=== PATIENT | female | born 1955 | race Caucasian/White ===

== ENCOUNTER 2017-09-22 20:16 | Inpatient (IN) | payer MEDICAID ==
[~2017-09-22] VITALS: Ht 157.5 cm; Wt 86.4 kg
[~2017-09-22 20:16] MED LIST: ACYC200C PO; DIT5T PO; LEVO100T PO; METF500T PO; METO1TAB39; PROB500T10 PO
[2017-09-22] MEDS ORDERED: methylPREDNISolone sod succ 125mg/2ml vial IV ONE (20:35)
[2017-09-22] MEDS ORDERED: ipratropium/albuterol 3ml nebule NEB ONE (20:35)
[2017-09-22] MEDS ORDERED: levoFLOXACIN-Levaquin 500mg/D5 100 ML IV ONE (20:35)
[2017-09-22] MEDS ORDERED: LORazepam 2 mg/ml vial IV ONE (20:35)
[2017-09-22 20:42] LABS: BASOPHILS % (AUTO) 0.2 % (0-1); EOSINOPHILS # (AUTO) 0.4 X10'3 (0-0.9); EOSINOPHILS % (AUTO) 3.4 % (0-6); HEMATOCRIT 39.7 % (35.0-45.0); HEMOGLOBIN 13.1 g/dl (12.0-16.0); LYMPHOCYTES # (AUTO) 2.1 X10'3 (1.1-4.8); LYMPHOCYTES % (AUTO) 19.2 % (21-51); MEAN CORPUSCULAR HEMOGLOBIN 29.1 PG (27.0-31.0); MEAN CORPUSCULAR HGB CONC 32.9 % (33.0-36.5); MEAN CORPUSCULAR VOLUME 88.4 FL (78-98); MEAN PLATELET VOLUME 8.4 FL (7.4-10.4); MONOCYTES # (AUTO) 0.8 X10'3 (0-0.9); MONOCYTES % (AUTO) 6.9 % (2-12); NEUTROPHILS # (AUTO) 7.7 X10'3 (1.8-7.7); NEUTROPHILS % (AUTO) 70.3 % (42-75); PLATELET COUNT 273 X10'3 (140-440); RED BLOOD COUNT 4.49 X10'6 (4.20-5.60); RED CELL DISTRIBUTION WIDTH 16.2 % (11.5-14.5); WHITE BLOOD COUNT 10.9 X10'3 (4.5-11.0)
[2017-09-22 20:55] LABS: INR 0.9 INR; PARTIAL THROMBOPLASTIN TIME 25 SECONDS (22-32); PROTHROMBIN TIME 9.8 SECONDS (9.0-12.0)
[2017-09-22] MEDS ORDERED: temazepam 15mg capsule PO PRN (21:00)
[2017-09-22 21:08] LABS: ALANINE AMINOTRANSFERASE 41 U/L (12-78); ALBUMIN 3.3 G/DL (3.4-5.0); ALBUMIN/GLOBULIN RATIO 0.9 (1.1-1.5); ALKALINE PHOSPHATASE 141 IU/L (46-116); ANION GAP 9 (8-16); ASPARTATE AMINO TRANSFERASE 34 U/L (10-37); BILIRUBIN,TOTAL 0.4 MG/DL (0.1-1.0); BLOOD UREA NITROGEN 22 MG/DL (7-18); CALCIUM 8.7 MG/DL (8.5-10.1); CHLORIDE 104 MMOL/L (99-107); CREATININE 1.22 MG/DL (0.40-0.90); GLUCOSE 163 MG/DL (70-104); POTASSIUM 3.7 MMOL/L (3.5-5.1); SODIUM 141 MMOL/L (135-145); TOTAL CARBON DIOXIDE 27.7 MMOL/L (24-32); TOTAL PROTEIN 6.9 G/DL (6.4-8.2); eGFR 45 ML/MIN
[2017-09-22] MEDS ORDERED: nitroGLYCERIN-Tridil 50MG/D5W 250 ML IV ONE (21:10)
[2017-09-22] MEDS ORDERED: furosemide 10 MG/1 ML 10ml inj IV ONE (21:10)
[2017-09-22] MEDS ORDERED: normal saline 1000ml 1,000 ML IV SCH (21:49)
[2017-09-22] MEDS ORDERED: magnesium hydroxide 30ml (MOM) UD suspension PO PRN (21:50)
[2017-09-22] MEDS ORDERED: acetaminophen 650mg rectal suppository RC PRN (21:50)
[2017-09-22] MEDS ORDERED: HYDROcodone/acetaminophen 5mg/325mg tablet PO PRN (21:50)
[2017-09-22] MEDS ORDERED: diphenhydrAMINE 50 mg/ml inj IV PRN (21:50)
[2017-09-22] MEDS ORDERED: CHOL100024 PO (21:50)
[2017-09-22] MEDS ORDERED: diphenhydrAMINE 25mg capsule PO PRN (21:50)
[2017-09-22] MEDS ORDERED: mag hydrox/Alum hydrox/simeth 30ml oral suspension PO PRN (21:50)
[2017-09-22] MEDS ORDERED: HYDROcodone/acetaminophen 10/325mg tab PO PRN (21:50)
[2017-09-22] MEDS ORDERED: ondansetron/PF 4mg/2ml inj IV PRN (21:50)
[2017-09-22] MEDS ORDERED: metoclopramide 5 mg/ml inj IV PRN (21:50)
[2017-09-22] MEDS ORDERED: bisacodyl 10mg suppository rectal RC PRN (21:50)
[2017-09-22] MEDS ORDERED: acetaminophen 325mg tablet PO PRN ×2 (21:50)
[2017-09-22] MEDS ORDERED: morphine 2 MG/ML inj. syringe IV PRN ×2 (21:50)
[2017-09-23] VITALS: BP 157/96
[2017-09-23] MEDS ORDERED: hyDRALAzine 10mg tablet PO ONE (01:30)
[2017-09-23 03:14] LABS: BASOPHILS % (AUTO) 0.3 % (0-1); EOSINOPHILS % (AUTO) 0 % (0-6); HEMATOCRIT 39.9 % (35.0-45.0); HEMOGLOBIN 13.1 g/dl (12.0-16.0); LYMPHOCYTES # (AUTO) 0.4 X10'3 (1.1-4.8); LYMPHOCYTES % (AUTO) 4.7 % (21-51); MEAN CORPUSCULAR HEMOGLOBIN 29.1 PG (27.0-31.0); MEAN CORPUSCULAR VOLUME 88.2 FL (78-98); MEAN PLATELET VOLUME 9.1 FL (7.4-10.4); MONOCYTES # (AUTO) 0.1 X10'3 (0-0.9); MONOCYTES % (AUTO) 0.8 % (2-12); NEUTROPHILS # (AUTO) 8.2 X10'3 (1.8-7.7); NEUTROPHILS % (AUTO) 94.2 % (42-75); PLATELET COUNT 249 X10'3 (140-440); RED BLOOD COUNT 4.52 X10'6 (4.20-5.60); WHITE BLOOD COUNT 8.7 X10'3 (4.5-11.0)
[2017-09-23 03:31] LABS: HEMOGLOBIN A1C 7.1 % (4.5-6.2)
[2017-09-23 03:32] LABS: ALANINE AMINOTRANSFERASE 39 U/L (12-78); ALBUMIN 3.4 G/DL (3.4-5.0); ALBUMIN/GLOBULIN RATIO 0.9 (1.1-1.5); ALKALINE PHOSPHATASE 130 IU/L (46-116); ANION GAP 11 (8-16); ASPARTATE AMINO TRANSFERASE 31 U/L (10-37); BILIRUBIN,TOTAL 0.5 MG/DL (0.1-1.0); BLOOD UREA NITROGEN 20 MG/DL (7-18); BUN/CREATININE RATIO 16.8 (6.6-38.0); CALCIUM 8.9 MG/DL (8.5-10.1); CHLORIDE 102 MMOL/L (99-107); CREATININE 1.19 MG/DL (0.40-0.90); GLUCOSE 217 MG/DL (70-104); POTASSIUM 3.2 MMOL/L (3.5-5.1); SODIUM 142 MMOL/L (135-145); TOTAL CARBON DIOXIDE 29.1 MMOL/L (24-32); eGFR 46 ML/MIN
[2017-09-23 04:16] LABS: D-DIMER 1.05 MG/L FEU (0-0.50)
[2017-09-23] MEDS ORDERED: potassium Cl 40MEQ/NS 500ml 500 ML IV PRN ×2 (06:05)
[2017-09-23] MEDS ORDERED: potassium Cl 20 mEq SR tablet PO PRN (06:05)
[2017-09-23 07:15] VITALS: BP 121/67
[2017-09-23] MEDS: docusate sod 100mg capsule PO SCH ×2 (08:00→19:16)
[2017-09-23] MEDS ORDERED: methylPREDNISolone sod succ 125mg/2ml vial IV SCH (08:00)
[2017-09-23] MEDS: K and/or MAG REPLACEMENT MC SCH (08:00)
[2017-09-23] MEDS: heparin, porcine 5000 units/ml vial SQ SCH ×2 (08:00→19:16)
[2017-09-23] MEDS ORDERED: hyDRALAzine 10mg tablet PO SCH (08:00)
[2017-09-23] MEDS: potassium Cl 20 mEq SR tablet PO PRN ×3 (09:08→17:13)
[2017-09-23] MEDS: levoFLOXACIN-Levaquin 500mg/D5 100 ML IV SCH (09:09)
[2017-09-23 09:18] VITALS: BP 128/73
[2017-09-23 11:24] VITALS: BP 148/87
[2017-09-23] MEDS: metoprolol succinate 25mg (24-HOUR) SR. Tablet PO SCH (11:27)
[2017-09-23] MEDS ORDERED: hydrALAZINE 20mg/ml inj. IV PRN (11:50)
[2017-09-23] MEDS ORDERED: dextrose ORAL solution 15 GM/59 ML bottle PO PRN ×2 (12:00)
[2017-09-23] MEDS ORDERED: MESSAGE TO PHARMACY PO ONE (12:00)
[2017-09-23] MEDS ORDERED: glucagon, human recombinant 1mg kit SUBCUT PRN (12:00)
[2017-09-23] MEDS ORDERED: dextrose 50%-water 50ml dispensing syringe IV PRN ×2 (12:00)
[2017-09-23] MEDS: insulin Lispro (HumaLOG) vial - multi-dose SQ SCH ×2 (13:55→19:15)
[2017-09-23] MEDS: ipratropium/albuterol 3ml nebule NEB SCH ×3 (14:37→23:00)
[2017-09-23] MEDS: methylPREDNISolone sod succ 125mg/2ml vial IV SCH ×2 (16:15→23:43)
[2017-09-23] MEDS: acyclovir 200 MG capsule PO SCH (19:17)
[2017-09-23] MEDS: oxybutynin 5mg tablet PO SCH (19:17)
[2017-09-23 20:00] VITALS: BP 144/92
[2017-09-23] MEDS ORDERED: insulin glargine (Lantus) pen - multi-dose SQ SCH (21:00)
[2017-09-24] VITALS: BP 118/74
[2017-09-24] MEDS: ipratropium/albuterol 3ml nebule NEB SCH ×4 (02:56→14:29)
[2017-09-24 03:30] LABS: HEMATOCRIT 39.6 % (35.0-45.0); HEMOGLOBIN 13.2 g/dl (12.0-16.0); MEAN CORPUSCULAR HEMOGLOBIN 29.2 PG (27.0-31.0); MEAN CORPUSCULAR HGB CONC 33.3 % (33.0-36.5); MEAN CORPUSCULAR VOLUME 87.7 FL (78-98); RED BLOOD COUNT 4.52 X10'6 (4.20-5.60); RED CELL DISTRIBUTION WIDTH 16.2 % (11.5-14.5); WHITE BLOOD COUNT 19.8 X10'3 (4.5-11.0)
[2017-09-24 03:31] LABS: BASOPHILS % (AUTO) 0 % (0-1); EOSINOPHILS # (AUTO) 0.1 X10'3 (0-0.9); EOSINOPHILS % (AUTO) 0.4 % (0-6); LYMPHOCYTES # (AUTO) 0.7 X10'3 (1.1-4.8); LYMPHOCYTES % (AUTO) 3.3 % (21-51); MEAN PLATELET VOLUME 8.4 FL (7.4-10.4); MONOCYTES # (AUTO) 0.4 X10'3 (0-0.9); MONOCYTES % (AUTO) 1.8 % (2-12); NEUTROPHILS # (AUTO) 18.7 X10'3 (1.8-7.7); NEUTROPHILS % (AUTO) 94.5 % (42-75); PLATELET COUNT 290 X10'3 (140-440)
[2017-09-24 03:46] LABS: ALANINE AMINOTRANSFERASE 39 U/L (12-78); ALBUMIN 3.1 G/DL (3.4-5.0); ALBUMIN/GLOBULIN RATIO 0.9 (1.1-1.5); ALKALINE PHOSPHATASE 106 IU/L (46-116); ANION GAP 8 (8-16); ASPARTATE AMINO TRANSFERASE 23 U/L (10-37); BILIRUBIN,TOTAL 0.4 MG/DL (0.1-1.0); BLOOD UREA NITROGEN 28 MG/DL (7-18); BUN/CREATININE RATIO 22.4 (6.6-38.0); CALCIUM 9.2 MG/DL (8.5-10.1); CHLORIDE 102 MMOL/L (99-107); CREATININE 1.25 MG/DL (0.40-0.90); GLUCOSE 222 MG/DL (70-104); POTASSIUM 3.7 MMOL/L (3.5-5.1); SODIUM 140 MMOL/L (135-145); TOTAL CARBON DIOXIDE 29.6 MMOL/L (24-32); TOTAL PROTEIN 6.7 G/DL (6.4-8.2); eGFR 43 ML/MIN
[2017-09-24 07:00] VITALS: BP 134/68
[2017-09-24] MEDS ORDERED: levoTHYROXINE 100mcg tablet PO SCH (07:00)
[2017-09-24] MEDS: methylPREDNISolone sod succ 125mg/2ml vial IV SCH (07:52)
[2017-09-24] MEDS: levoFLOXACIN-Levaquin 500mg/D5 100 ML IV SCH (07:54)
[2017-09-24] MEDS: acyclovir 200 MG capsule PO SCH (07:55)
[2017-09-24] MEDS: oxybutynin 5mg tablet PO SCH (07:55)
[2017-09-24] MEDS: metoprolol succinate 25mg (24-HOUR) SR. Tablet PO SCH (07:55)
[2017-09-24] MEDS: docusate sod 100mg capsule PO SCH (07:56)
[2017-09-24] MEDS: heparin, porcine 5000 units/ml vial SQ SCH (07:56)
[2017-09-24] MEDS: K and/or MAG REPLACEMENT MC SCH (08:00)
[2017-09-24] MEDS ORDERED: HYDROchlorothiazide 12.5mg capsule PO SCH (08:00)
[2017-09-24] MEDS ORDERED: probenecid 500mg tablet PO SCH (08:00)
[2017-09-24] MEDS: insulin Lispro (HumaLOG) vial - multi-dose SQ SCH ×2 (09:29→13:12)
[2017-09-24 12:00] VITALS: BP 148/86
[2017-09-24] MEDS ORDERED: PRED20TA PO (14:42)
[2017-09-24] MEDS ORDERED: FLUT1DIS4 INH (14:42)
[2017-09-24] MEDS ORDERED: LEVO500T89 PO (14:42)
[2017-09-24] MEDS ORDERED: ALBU8.5H8 INH (14:42)
[2017-09-24] MEDS ORDERED: BENZ-16 PO (15:17)
== END 2017-09-24 15:58 | disposition home or self-care (01) | DRG 140 ==
LOC: ER 20:17 → ED HOLD 21:49 → SUR 3N 22:57
PROVIDERS: ADMIT Family Medicine; ATTEND Family Medicine
DX: J44.1 Chronic obstructive pulmonary disease with (acute) exacerbation (principal); I50.33 Acute on chronic diastolic (congestive) heart failure; N17.9 Acute kidney failure, unspecified; I11.0 Hypertensive heart disease with heart failure; E87.6 Hypokalemia; E03.9 Hypothyroidism, unspecified; E11.9 Type 2 diabetes mellitus without complications; M10.9 Gout, unspecified; E66.9 Obesity, unspecified; I16.1 Hypertensive emergency; Z79.899 Other long term (current) drug therapy; Z85.41 Personal history of malignant neoplasm of cervix uteri; Z88.5 Allergy status to narcotic agent; Z88.2 Allergy status to sulfonamides; Z79.84 Long term (current) use of oral hypoglycemic drugs; Z68.34 Body mass index [BMI] 34.0-34.9, adult
CPT/HCPCS: 36415; 71045; 71250; 78582; 80053; 82948; 83036; 83605; 83880; 84443; 84484; 85025; 85379; 85610; 85730; 87040; 87070; 93005; 93306; 94640; 94760; 96365; 96375; 99285; A9539; A9540; J1644; J1815; J1940; J1956; J2060; J2930; J3490; J7030

== ENCOUNTER 2017-10-18 14:46 | Inpatient (IN) | payer BC, MEDICAID ==
[~2017-10-18] VITALS: Ht 157.5 cm; Wt 84.0 kg
[~2017-10-18 14:46] MED LIST changes: +ALBU8.5H8 INH; +BENZ-16 PO; +CHOL100024 PO; +FLUT1DIS4 INH; +LEVO500T89 PO; +PRED20TA PO
[2017-10-18] MEDS ORDERED: dexamethasone 4mg tablet PO ONE ×2 (15:25→16:20)
[2017-10-18] MEDS ORDERED: ipratropium/albuterol 3ml nebule NEB ONE (15:25)
[2017-10-18] MEDS ORDERED: glucagon, human recombinant 1mg kit SUBCUT PRN (16:50)
[2017-10-18] MEDS ORDERED: nitroGLYCERIN 0.4mg SUBLingual tab SL PRN (16:50)
[2017-10-18] MEDS ORDERED: furosemide 10 MG/1 ML 10ml inj IV ONE (16:50)
[2017-10-18] MEDS ORDERED: metoprolol tartrate 1mg/ml inj IV PRN (16:50)
[2017-10-18] MEDS ORDERED: aminophylline 250mg/10ml inj. IV PRN (16:50)
[2017-10-18] MEDS ORDERED: regadenoson 0.4mg/5ml syringe IV ONE (16:50)
[2017-10-18] MEDS ORDERED: magnesium 2GM in 50ml NS 50 ML IV PRN (16:50)
[2017-10-18] MEDS ORDERED: magnesium 4gm in 100ml NS 100 ML IV PRN (16:50)
[2017-10-18] MEDS ORDERED: acetaminophen 325mg tablet PO PRN (16:50)
[2017-10-18] MEDS ORDERED: MORPHINE 2MG in 2ml NS syringe IV PRN (16:50)
[2017-10-18] MEDS ORDERED: magnesium Cl slow-release 64mg tablet PO PRN (16:50)
[2017-10-18] MEDS ORDERED: potassium Cl 40MEQ/NS 500ml 500 ML IV PRN ×2 (16:50)
[2017-10-18] MEDS ORDERED: potassium Cl 20 mEq SR tablet PO PRN ×2 (16:50)
[2017-10-18] MEDS ORDERED: MESSAGE TO PHARMACY PO ONE (16:50)
[2017-10-18] MEDS ORDERED: ondansetron/PF 4mg/2ml inj IV PRN (16:50)
[2017-10-18] MEDS ORDERED: dextrose ORAL solution 15 GM/59 ML bottle PO PRN ×2 (16:50)
[2017-10-18] MEDS ORDERED: dextrose 50%-water 50ml dispensing syringe IV PRN ×2 (16:50)
[2017-10-18] MEDS ORDERED: mag hydrox/Alum hydrox/simeth 30ml oral suspension PO PRN (16:50)
[2017-10-18 17:26] LABS: BASOPHILS % (AUTO) 0.1 % (0-1); EOSINOPHILS # (AUTO) 0.2 X10'3 (0-0.9); EOSINOPHILS % (AUTO) 3.2 % (0-6); HEMATOCRIT 38.1 % (35.0-45.0); HEMOGLOBIN 12.6 g/dl (12.0-16.0); LYMPHOCYTES # (AUTO) 0.9 X10'3 (1.1-4.8); LYMPHOCYTES % (AUTO) 11.8 % (21-51); MEAN CORPUSCULAR HEMOGLOBIN 29.1 PG (27.0-31.0); MEAN CORPUSCULAR HGB CONC 33.1 % (33.0-36.5); MEAN CORPUSCULAR VOLUME 88.1 FL (78-98); MEAN PLATELET VOLUME 8.5 FL (7.4-10.4); MONOCYTES # (AUTO) 0.7 X10'3 (0-0.9); MONOCYTES % (AUTO) 9.1 % (2-12); NEUTROPHILS # (AUTO) 5.6 X10'3 (1.8-7.7); NEUTROPHILS % (AUTO) 75.8 % (42-75); PLATELET COUNT 279 X10'3 (140-440); RED BLOOD COUNT 4.33 X10'6 (4.20-5.60); RED CELL DISTRIBUTION WIDTH 17.2 % (11.5-14.5); WHITE BLOOD COUNT 7.4 X10'3 (4.5-11.0)
[2017-10-18 17:34] LABS: ALANINE AMINOTRANSFERASE 22 U/L (12-78); ALBUMIN 3.1 G/DL (3.4-5.0); ALBUMIN/GLOBULIN RATIO 0.8 (1.1-1.5); ALKALINE PHOSPHATASE 112 IU/L (46-116); ANION GAP 9 (8-16); ASPARTATE AMINO TRANSFERASE 13 U/L (10-37); BILIRUBIN,TOTAL 0.6 MG/DL (0.1-1.0); BLOOD UREA NITROGEN 20 MG/DL (7-18); BUN/CREATININE RATIO 14.6 (6.6-38.0); CALCIUM 9.4 MG/DL (8.5-10.1); CHLORIDE 99 MMOL/L (99-107); CREATININE 1.37 MG/DL (0.40-0.90); GLUCOSE 123 MG/DL (70-104); POTASSIUM 3.7 MMOL/L (3.5-5.1); SODIUM 137 MMOL/L (135-145); TOTAL CARBON DIOXIDE 28.8 MMOL/L (24-32); TOTAL PROTEIN 6.8 G/DL (6.4-8.2); eGFR 39 ML/MIN
[2017-10-18] MEDS: metoprolol tartrate 50mg tablet PO SCH ×2 (18:41→20:00)
[2017-10-18] MEDS: nitroGLYCERIN 1gm ointment UD TP SCH ×2 (18:41→20:00)
[2017-10-18] MEDS: fluticasone/vilanterol 200mcg/25mcg inhaler IH SCH (20:32)
[2017-10-18] MEDS: furosemide 10 MG/1 ML 10ml inj IV SCH (20:34)
[2017-10-18] MEDS: methylPREDNISolone sod succ 125mg/2ml vial IV SCH (20:36)
[2017-10-18] MEDS: oxybutynin 5mg tablet PO SCH (20:39)
[2017-10-18] MEDS: insulin glargine (Lantus) pen - multi-dose SQ SCH (21:00)
[2017-10-19] VITALS (11 sets, daily range): BP systolic 92–128; BP diastolic 52–78
[2017-10-19] MEDS ORDERED: ipratropium/albuterol 3ml nebule ONE (01:57)
[2017-10-19] MEDS: ipratropium/albuterol 3ml nebule NEB SCH ×6 (02:02→22:48)
[2017-10-19] MEDS: methylPREDNISolone sod succ 125mg/2ml vial IV SCH ×4 (03:47→20:49)
[2017-10-19 06:47] LABS: ALBUMIN 2.9 G/DL (3.4-5.0); ANION GAP 10 (8-16); BLOOD UREA NITROGEN 31 MG/DL (7-18); BUN/CREATININE RATIO 20.7 (6.6-38.0); CALCIUM 9.3 MG/DL (8.5-10.1); CHLORIDE 98 MMOL/L (99-107); GLUCOSE 234 MG/DL (70-104); MAGNESIUM 1.6 MG/DL (1.5-2.4); POTASSIUM 3.7 MMOL/L (3.5-5.1); SODIUM 138 MMOL/L (135-145); TOTAL CARBON DIOXIDE 29.7 MMOL/L (24-32); eGFR 35 ML/MIN
[2017-10-19] MEDS ORDERED: regadenoson 0.4mg/5ml syringe IV ONE ×2 (07:00→13:18)
[2017-10-19] MEDS ORDERED: METO-384 (07:06)
[2017-10-19] MEDS: fluticasone/vilanterol 200mcg/25mcg inhaler IH SCH ×2 (07:10→19:03)
[2017-10-19] MEDS ORDERED: enoxaparin 40mg/0.4ml syringe SUBCUT SCH (08:00)
[2017-10-19] MEDS: K and/or MAG REPLACEMENT MC SCH (09:00)
[2017-10-19] MEDS: metoprolol tartrate 50mg tablet PO SCH ×2 (09:02→20:50)
[2017-10-19] MEDS: furosemide 10 MG/1 ML 10ml inj IV SCH (09:06)
[2017-10-19] MEDS: oxybutynin 5mg tablet PO SCH ×2 (09:07→20:26)
[2017-10-19] MEDS: nitroGLYCERIN 1gm ointment UD TP SCH ×2 (09:07→20:59)
[2017-10-19] MEDS: insulin Lispro (HumaLOG) vial - multi-dose SQ SCH ×3 (09:09→23:06)
[2017-10-19] MEDS: levoTHYROXINE 100mcg tablet PO SCH (09:11)
[2017-10-19] MEDS ORDERED: aminophylline inj. 0 ML IV ONE (13:18)
[2017-10-19] MEDS: insulin glargine (Lantus) pen - multi-dose SQ SCH (23:01)
[2017-10-20] MEDS: ipratropium/albuterol 3ml nebule NEB SCH ×6 (02:56→23:11)
[2017-10-20 03:00] VITALS: BP 106/62
[2017-10-20] MEDS: methylPREDNISolone sod succ 125mg/2ml vial IV SCH ×4 (03:09→19:35)
[2017-10-20 06:00] VITALS: BP 126/63
[2017-10-20 07:02] LABS: ANION GAP 10 (8-16); BLOOD UREA NITROGEN 44 MG/DL (7-18); CALCIUM 9.1 MG/DL (8.5-10.1); CHLORIDE 97 MMOL/L (99-107); CREATININE 1.76 MG/DL (0.40-0.90); GLUCOSE 224 MG/DL (70-104); POTASSIUM 3.7 MMOL/L (3.5-5.1); SODIUM 139 MMOL/L (135-145); TOTAL CARBON DIOXIDE 32.3 MMOL/L (24-32); eGFR 29 ML/MIN
[2017-10-20] MEDS: fluticasone/vilanterol 200mcg/25mcg inhaler IH SCH (07:51)
[2017-10-20] MEDS: K and/or MAG REPLACEMENT MC SCH (08:00)
[2017-10-20] MEDS: oxybutynin 5mg tablet PO SCH ×2 (08:07→19:37)
[2017-10-20] MEDS: levoTHYROXINE 100mcg tablet PO SCH (08:08)
[2017-10-20] MEDS: metoprolol tartrate 50mg tablet PO SCH (08:08)
[2017-10-20] MEDS: nitroGLYCERIN 1gm ointment UD TP SCH ×2 (08:09→19:37)
[2017-10-20] MEDS: insulin Lispro (HumaLOG) vial - multi-dose SQ SCH ×4 (08:12→21:38)
[2017-10-20] MEDS ORDERED: albuterol 2.5 MG/3 ML nebule NEB PRN (10:45)
[2017-10-20 11:00] VITALS: BP 113/64
[2017-10-20] MEDS: levoFLOXACIN 500mg tablet PO SCH (11:35)
[2017-10-20] MEDS: guaiFENesin 200 MG/10 ML oral syrup UD cup PO PRN ×2 (11:37→19:51)
[2017-10-20] MEDS: magnesium hydroxide 30ml (MOM) UD suspension PO PRN (14:06)
[2017-10-20 15:00] VITALS: BP 106/62
[2017-10-20 19:00] VITALS: BP 132/69
[2017-10-20] MEDS: heparin, porcine 5000 units/ml vial SQ SCH (19:36)
[2017-10-20] MEDS: acyclovir 200 MG capsule PO SCH (19:37)
[2017-10-20] MEDS: carVEDilol 3.125mg tablet PO SCH (19:37)
[2017-10-20] MEDS: insulin glargine (Lantus) pen - multi-dose SQ SCH (21:36)
[2017-10-20 23:00] VITALS: BP 121/57
[2017-10-21] MEDS: methylPREDNISolone sod succ 125mg/2ml vial IV SCH ×2 (02:27→08:04)
[2017-10-21] MEDS: guaiFENesin 200 MG/10 ML oral syrup UD cup PO PRN ×3 (02:34→19:06)
[2017-10-21 03:00] VITALS: BP 118/62
[2017-10-21] MEDS: ipratropium/albuterol 3ml nebule NEB SCH ×6 (03:27→23:14)
[2017-10-21 06:00] VITALS: BP 109/62
[2017-10-21 06:47] LABS: ALBUMIN 2.8 G/DL (3.4-5.0); ANION GAP 8 (8-16); BLOOD UREA NITROGEN 54 MG/DL (7-18); CALCIUM 8.6 MG/DL (8.5-10.1); CHLORIDE 95 MMOL/L (99-107); GLUCOSE 194 MG/DL (70-104); MAGNESIUM 2.4 MG/DL (1.5-2.4); SODIUM 136 MMOL/L (135-145); TOTAL CARBON DIOXIDE 33.1 MMOL/L (24-32); eGFR 35 ML/MIN
[2017-10-21] MEDS: heparin, porcine 5000 units/ml vial SQ SCH ×2 (08:00→19:02)
[2017-10-21] MEDS: K and/or MAG REPLACEMENT MC SCH (08:00)
[2017-10-21] MEDS: aspirin 81mg tablet.DR PO SCH (08:05)
[2017-10-21] MEDS: oxybutynin 5mg tablet PO SCH ×2 (08:05→19:01)
[2017-10-21] MEDS: carVEDilol 3.125mg tablet PO SCH ×2 (08:05→19:02)
[2017-10-21] MEDS: levoTHYROXINE 100mcg tablet PO SCH (08:07)
[2017-10-21] MEDS: nitroGLYCERIN 1gm ointment UD TP SCH ×2 (08:07→19:02)
[2017-10-21] MEDS: acyclovir 200 MG capsule PO SCH ×2 (08:08→19:01)
[2017-10-21] MEDS: insulin Lispro (HumaLOG) vial - multi-dose SQ SCH ×3 (08:28→19:10)
[2017-10-21] MEDS: magnesium hydroxide 30ml (MOM) UD suspension PO PRN (08:30)
[2017-10-21] MEDS: fluticasone/vilanterol 200mcg/25mcg inhaler IH SCH (08:53)
[2017-10-21 10:51] LABS: BASOPHILS % (AUTO) 0 % (0-1); EOSINOPHILS # (AUTO) 0.2 X10'3 (0-0.9); EOSINOPHILS % (AUTO) 1.6 % (0-6); HEMATOCRIT 38.2 % (35.0-45.0); HEMOGLOBIN 12.6 g/dl (12.0-16.0); LYMPHOCYTES # (AUTO) 0.3 X10'3 (1.1-4.8); LYMPHOCYTES % (AUTO) 2.3 % (21-51); MEAN CORPUSCULAR HEMOGLOBIN 29.4 PG (27.0-31.0); MEAN CORPUSCULAR HGB CONC 33.1 % (33.0-36.5); MEAN CORPUSCULAR VOLUME 88.7 FL (78-98); MEAN PLATELET VOLUME 8.5 FL (7.4-10.4); MONOCYTES # (AUTO) 0.7 X10'3 (0-0.9); MONOCYTES % (AUTO) 4.5 % (2-12); NEUTROPHILS # (AUTO) 13.5 X10'3 (1.8-7.7); NEUTROPHILS % (AUTO) 91.6 % (42-75); PLATELET COUNT 323 X10'3 (140-440); RED CELL DISTRIBUTION WIDTH 17.3 % (11.5-14.5); WHITE BLOOD COUNT 14.8 X10'3 (4.5-11.0)
[2017-10-21 11:00] VITALS: BP 123/67
[2017-10-21] MEDS: HYDROcodone/acetaminophen 5mg/325mg tablet PO PRN (12:28)
[2017-10-21] MEDS: levoFLOXACIN 500mg tablet PO SCH (12:29)
[2017-10-21 15:00] VITALS: BP 130/73
[2017-10-21 16:28] LABS: CLARITY,URINE Clear (Clear); COLOR,URINE Yellow (Yellow); GLUCOSE, URINE Negative (Neg); KETONES,URINE Negative (Neg); LEUKOCYTE ESTERASE ,URINE Negative (Neg); NITRITES, URINE Negative (Neg); OCCULT BLOOD,URINE Negative (Neg); PH,URINE 5.5 (4.8-8.0); PROTEIN,URINE Trace mg/dl (Neg); UROBILINOGEN,URINE 0.2 E.U/dL (0.2-1.0)
[2017-10-21 16:30] LABS: UA COLLECTION TYPE CLN CATCH MIDSTREAM
[2017-10-21 16:34] LABS: BACTERIA,URINE NONE SEEN /HPF (Neg); HYALINE CASTS 0-3 /LPF (NEGATIVE); RBC,URINE NONE SEEN /HPF (0-2); SQUAMOUS EPITHELIAL CELL,UR FEW /LPF (FEW); WBC,URINE 0-4 /HPF (0-4)
[2017-10-21 19:00] VITALS: BP 142/52
[2017-10-21] MEDS: lactobacillus rhamnosus 10,000 MMU CELLS/CAPSULE PO SCH (19:01)
[2017-10-21] MEDS: insulin glargine (Lantus) pen - multi-dose SQ SCH (21:00)
[2017-10-21] MEDS ORDERED: temazepam 15mg capsule PO PRN (21:20)
[2017-10-21 22:38] VITALS: BP 125/79
[2017-10-22] VITALS (8 sets, daily range): BP systolic 95–146; BP diastolic 50–86
[2017-10-22] MEDS: guaiFENesin 200 MG/10 ML oral syrup UD cup PO PRN ×2 (01:24→19:37)
[2017-10-22] MEDS: HYDROcodone/acetaminophen 5mg/325mg tablet PO PRN (01:24)
[2017-10-22] MEDS: ipratropium/albuterol 3ml nebule NEB SCH ×6 (03:07→23:37)
[2017-10-22 06:51] LABS: ALBUMIN 2.8 G/DL (3.4-5.0); ANION GAP 6 (8-16); BLOOD UREA NITROGEN 47 MG/DL (7-18); BUN/CREATININE RATIO 38.5 (6.6-38.0); CALCIUM 8.5 MG/DL (8.5-10.1); CHLORIDE 100 MMOL/L (99-107); CREATININE 1.22 MG/DL (0.40-0.90); GLUCOSE 90 MG/DL (70-104); MAGNESIUM 2.3 MG/DL (1.5-2.4); SODIUM 140 MMOL/L (135-145); TOTAL CARBON DIOXIDE 34.2 MMOL/L (24-32); eGFR 45 ML/MIN
[2017-10-22] MEDS: K and/or MAG REPLACEMENT MC SCH (07:01)
[2017-10-22] MEDS: oxybutynin 5mg tablet PO SCH ×2 (07:22→19:33)
[2017-10-22] MEDS: lactobacillus rhamnosus 10,000 MMU CELLS/CAPSULE PO SCH ×2 (07:22→19:33)
[2017-10-22] MEDS: carVEDilol 3.125mg tablet PO SCH ×2 (07:22→19:33)
[2017-10-22] MEDS: levoTHYROXINE 100mcg tablet PO SCH (07:22)
[2017-10-22] MEDS: acyclovir 200 MG capsule PO SCH ×2 (07:23→19:33)
[2017-10-22] MEDS: aspirin 81mg tablet.DR PO SCH (07:23)
[2017-10-22] MEDS: nitroGLYCERIN 1gm ointment UD TP SCH ×2 (07:23→19:33)
[2017-10-22] MEDS: heparin, porcine 5000 units/ml vial SQ SCH ×2 (07:34→19:30)
[2017-10-22] MEDS: morphine 4 MG/ML inj SYRINge IV PRN ×2 (07:44→07:52)
[2017-10-22 07:55] LABS: ABG BASE EXCESS 4.7 mmol/L (-2.0-3.0); ABG HCO3 30.6 mmol/L (22.0-26.0); ABG OXYGEN SATURATION 94.6 % (95-98); ABG PCO2 (T) 49.9 mmHg (32.0-45.0); ABG PH (T) 7.405 (7.350-7.450); ABG PO2 (T) 74.5 mmHg (83-108); ALLEN'S TEST Positive; FCOHb 0.4 % (0.5-1.5); FLOW 15 L/min; FMetHb 0.2 % (0.3-1.12); TOTAL HEMOGLOBIN 14.7 G/dl (12.0-16.0)
[2017-10-22] MEDS ORDERED: furosemide 40mg/4ml inj IV ONE (08:00)
[2017-10-22] MEDS: fluticasone/vilanterol 200mcg/25mcg inhaler IH SCH (08:00)
[2017-10-22] MEDS ORDERED: morphine 10 MG/5 ML UD oral solution PO PRN (08:10)
[2017-10-22 08:37] LABS: BASOPHILS % (AUTO) 0.1 % (0-1); EOSINOPHILS % (AUTO) 0 % (0-6); HEMATOCRIT 39.2 % (35.0-45.0); HEMOGLOBIN 12.9 g/dl (12.0-16.0); LYMPHOCYTES # (AUTO) 1.6 X10'3 (1.1-4.8); LYMPHOCYTES % (AUTO) 10.1 % (21-51); MEAN CORPUSCULAR HEMOGLOBIN 29.3 PG (27.0-31.0); MEAN CORPUSCULAR HGB CONC 32.9 % (33.0-36.5); MEAN CORPUSCULAR VOLUME 89.2 FL (78-98); MEAN PLATELET VOLUME 8.6 FL (7.4-10.4); MONOCYTES # (AUTO) 1.1 X10'3 (0-0.9); MONOCYTES % (AUTO) 7.3 % (2-12); NEUTROPHILS # (AUTO) 12.7 X10'3 (1.8-7.7); NEUTROPHILS % (AUTO) 82.5 % (42-75); PLATELET COUNT 315 X10'3 (140-440); RED CELL DISTRIBUTION WIDTH 16.8 % (11.5-14.5); WHITE BLOOD COUNT 15.4 X10'3 (4.5-11.0)
[2017-10-22] MEDS: predniSONE 20 mg tablet PO SCH (09:42)
[2017-10-22] MEDS: levoFLOXACIN 500mg tablet PO SCH (11:24)
[2017-10-22] MEDS: insulin Lispro (HumaLOG) vial - multi-dose SQ SCH ×2 (13:14→19:28)
[2017-10-22] MEDS: insulin glargine (Lantus) pen - multi-dose SQ SCH (21:19)
[2017-10-23] VITALS (7 sets, daily range): BP systolic 102–146; BP diastolic 56–95
[2017-10-23] MEDS: ipratropium/albuterol 3ml nebule NEB SCH ×6 (03:00→23:37)
[2017-10-23 05:32] LABS: BASOPHILS % (AUTO) 0.1 % (0-1); EOSINOPHILS # (AUTO) 0.2 X10'3 (0-0.9); EOSINOPHILS % (AUTO) 1.2 % (0-6); HEMATOCRIT 40.1 % (35.0-45.0); HEMOGLOBIN 13.3 g/dl (12.0-16.0); LYMPHOCYTES # (AUTO) 1.5 X10'3 (1.1-4.8); LYMPHOCYTES % (AUTO) 11.9 % (21-51); MEAN CORPUSCULAR HGB CONC 33.1 % (33.0-36.5); MEAN CORPUSCULAR VOLUME 87.7 FL (78-98); MEAN PLATELET VOLUME 8.3 FL (7.4-10.4); MONOCYTES # (AUTO) 0.8 X10'3 (0-0.9); MONOCYTES % (AUTO) 6.2 % (2-12); NEUTROPHILS % (AUTO) 80.6 % (42-75); PLATELET COUNT 275 X10'3 (140-440); RED BLOOD COUNT 4.58 X10'6 (4.20-5.60); RED CELL DISTRIBUTION WIDTH 16.9 % (11.5-14.5); WHITE BLOOD COUNT 12.4 X10'3 (4.5-11.0)
[2017-10-23 06:55] LABS: ALBUMIN 2.6 G/DL (3.4-5.0); ANION GAP 8 (8-16); BLOOD UREA NITROGEN 38 MG/DL (7-18); BUN/CREATININE RATIO 34.2 (6.6-38.0); CALCIUM 8.5 MG/DL (8.5-10.1); CHLORIDE 99 MMOL/L (99-107); CREATININE 1.11 MG/DL (0.40-0.90); GLUCOSE 90 MG/DL (70-104); MAGNESIUM 2.1 MG/DL (1.5-2.4); POTASSIUM 3.5 MMOL/L (3.5-5.1); SODIUM 142 MMOL/L (135-145); TOTAL CARBON DIOXIDE 35.2 MMOL/L (24-32); eGFR 50 ML/MIN
[2017-10-23] MEDS: levoTHYROXINE 100mcg tablet PO SCH (07:27)
[2017-10-23] MEDS: K and/or MAG REPLACEMENT MC SCH (08:00)
[2017-10-23] MEDS: heparin, porcine 5000 units/ml vial SQ SCH ×3 (08:00→18:56)
[2017-10-23] MEDS: oxybutynin 5mg tablet PO SCH ×2 (08:15→18:54)
[2017-10-23] MEDS: carVEDilol 3.125mg tablet PO SCH ×2 (08:15→18:54)
[2017-10-23] MEDS: lactobacillus rhamnosus 10,000 MMU CELLS/CAPSULE PO SCH ×2 (08:15→18:54)
[2017-10-23] MEDS: aspirin 81mg tablet.DR PO SCH (08:15)
[2017-10-23] MEDS: predniSONE 20 mg tablet PO SCH (08:15)
[2017-10-23] MEDS: furosemide 20 MG/2 ML vial IV SCH (08:16)
[2017-10-23] MEDS: acyclovir 200 MG capsule PO SCH ×2 (08:23→18:54)
[2017-10-23] MEDS: nitroGLYCERIN 1gm ointment UD TP SCH ×2 (08:23→18:54)
[2017-10-23] MEDS: fluticasone/vilanterol 200mcg/25mcg inhaler IH SCH (08:25)
[2017-10-23] MEDS: insulin Lispro (HumaLOG) vial - multi-dose SQ SCH ×3 (08:48→18:52)
[2017-10-23] MEDS: levoFLOXACIN 500mg tablet PO SCH (11:04)
[2017-10-23] MEDS ORDERED: benzonatate 100mg capsule PO PRN (20:50)
[2017-10-23] MEDS: insulin glargine (Lantus) pen - multi-dose SQ SCH (22:08)
[2017-10-24 03:00] VITALS: BP 115/70
[2017-10-24] MEDS: ipratropium/albuterol 3ml nebule NEB SCH ×6 (03:56→23:19)
[2017-10-24 04:29] LABS: BASOPHILS % (AUTO) 0.2 % (0-1); EOSINOPHILS # (AUTO) 0.1 X10'3 (0-0.9); EOSINOPHILS % (AUTO) 0.6 % (0-6); HEMATOCRIT 41.1 % (35.0-45.0); HEMOGLOBIN 13.8 g/dl (12.0-16.0); LYMPHOCYTES # (AUTO) 1.5 X10'3 (1.1-4.8); LYMPHOCYTES % (AUTO) 13.6 % (21-51); MEAN CORPUSCULAR HEMOGLOBIN 29.3 PG (27.0-31.0); MEAN CORPUSCULAR HGB CONC 33.5 % (33.0-36.5); MEAN CORPUSCULAR VOLUME 87.2 FL (78-98); MEAN PLATELET VOLUME 8.3 FL (7.4-10.4); MONOCYTES % (AUTO) 9.3 % (2-12); NEUTROPHILS # (AUTO) 8.5 X10'3 (1.8-7.7); NEUTROPHILS % (AUTO) 76.3 % (42-75); PLATELET COUNT 285 X10'3 (140-440); RED BLOOD COUNT 4.71 X10'6 (4.20-5.60); RED CELL DISTRIBUTION WIDTH 16.9 % (11.5-14.5); WHITE BLOOD COUNT 11.1 X10'3 (4.5-11.0)
[2017-10-24 06:00] VITALS: BP 111/71
[2017-10-24] MEDS: levoTHYROXINE 100mcg tablet PO SCH (07:00)
[2017-10-24] MEDS: lactobacillus rhamnosus 10,000 MMU CELLS/CAPSULE PO SCH ×2 (08:00→19:38)
[2017-10-24] MEDS: aspirin 81mg tablet.DR PO SCH (08:00)
[2017-10-24] MEDS: nitroGLYCERIN 1gm ointment UD TP SCH ×2 (08:00→19:37)
[2017-10-24] MEDS: fluticasone/vilanterol 200mcg/25mcg inhaler IH SCH (08:00)
[2017-10-24] MEDS: carVEDilol 3.125mg tablet PO SCH ×2 (08:00→19:37)
[2017-10-24] MEDS: oxybutynin 5mg tablet PO SCH ×2 (08:00→19:38)
[2017-10-24] MEDS: predniSONE 20 mg tablet PO SCH (08:00)
[2017-10-24] MEDS: acyclovir 200 MG capsule PO SCH ×2 (08:00→19:38)
[2017-10-24] MEDS: guaiFENesin ER 600mg tablet PO SCH ×2 (08:00→19:38)
[2017-10-24] MEDS: furosemide 20 MG/2 ML vial IV SCH (08:00)
[2017-10-24] MEDS: K and/or MAG REPLACEMENT MC SCH (08:00)
[2017-10-24 11:00] VITALS: BP 139/93
[2017-10-24] MEDS: levoFLOXACIN 500mg tablet PO SCH (11:19)
[2017-10-24] MEDS: insulin Lispro (HumaLOG) vial - multi-dose SQ SCH ×2 (14:33→19:53)
[2017-10-24 15:00] VITALS: BP 113/62
[2017-10-24 19:00] VITALS: BP 128/48
[2017-10-24] MEDS: heparin, porcine 5000 units/ml vial SQ SCH (19:48)
[2017-10-24] MEDS: insulin glargine (Lantus) pen - multi-dose SQ SCH (22:01)
[2017-10-24 23:00] VITALS: BP 123/65
[2017-10-25 03:00] VITALS: BP 80/40
[2017-10-25] MEDS: ipratropium/albuterol 3ml nebule NEB SCH ×3 (03:07→11:00)
[2017-10-25 05:35] LABS: BASOPHILS % (AUTO) 0.1 % (0-1); EOSINOPHILS # (AUTO) 0.1 X10'3 (0-0.9); EOSINOPHILS % (AUTO) 0.5 % (0-6); HEMATOCRIT 41.2 % (35.0-45.0); HEMOGLOBIN 13.6 g/dl (12.0-16.0); LYMPHOCYTES # (AUTO) 2.5 X10'3 (1.1-4.8); LYMPHOCYTES % (AUTO) 19.2 % (21-51); MEAN CORPUSCULAR HEMOGLOBIN 29.1 PG (27.0-31.0); MEAN CORPUSCULAR HGB CONC 33.1 % (33.0-36.5); MEAN CORPUSCULAR VOLUME 88.1 FL (78-98); MEAN PLATELET VOLUME 8.4 FL (7.4-10.4); MONOCYTES # (AUTO) 1.2 X10'3 (0-0.9); MONOCYTES % (AUTO) 9.2 % (2-12); PLATELET COUNT 301 X10'3 (140-440); RED BLOOD COUNT 4.67 X10'6 (4.20-5.60); RED CELL DISTRIBUTION WIDTH 16.9 % (11.5-14.5); WHITE BLOOD COUNT 12.7 X10'3 (4.5-11.0)
[2017-10-25 05:57] LABS: ALANINE AMINOTRANSFERASE 30 U/L (12-78); ALBUMIN 2.5 G/DL (3.4-5.0); ALBUMIN/GLOBULIN RATIO 0.7 (1.1-1.5); ALKALINE PHOSPHATASE 109 IU/L (46-116); ANION GAP 5 (8-16); ASPARTATE AMINO TRANSFERASE 18 U/L (10-37); BILIRUBIN,TOTAL 0.3 MG/DL (0.1-1.0); BLOOD UREA NITROGEN 42 MG/DL (7-18); BUN/CREATININE RATIO 31.3 (6.6-38.0); CALCIUM 8.8 MG/DL (8.5-10.1); CHLORIDE 97 MMOL/L (99-107); CREATININE 1.34 MG/DL (0.40-0.90); GLUCOSE 108 MG/DL (70-104); POTASSIUM 3.3 MMOL/L (3.5-5.1); SODIUM 138 MMOL/L (135-145); TOTAL CARBON DIOXIDE 35.7 MMOL/L (24-32); TOTAL PROTEIN 6.1 G/DL (6.4-8.2); eGFR 40 ML/MIN
[2017-10-25 06:00] VITALS: BP 111/80
[2017-10-25] MEDS: fluticasone/vilanterol 200mcg/25mcg inhaler IH SCH (07:05)
[2017-10-25] MEDS: heparin, porcine 5000 units/ml vial SQ SCH ×2 (08:00→08:04)
[2017-10-25] MEDS: nitroGLYCERIN 1gm ointment UD TP SCH (08:00)
[2017-10-25] MEDS: K and/or MAG REPLACEMENT MC SCH (08:00)
[2017-10-25] MEDS: guaiFENesin ER 600mg tablet PO SCH (08:03)
[2017-10-25] MEDS: levoTHYROXINE 100mcg tablet PO SCH (08:03)
[2017-10-25] MEDS: oxybutynin 5mg tablet PO SCH (08:03)
[2017-10-25] MEDS: lactobacillus rhamnosus 10,000 MMU CELLS/CAPSULE PO SCH (08:04)
[2017-10-25] MEDS: predniSONE 20 mg tablet PO SCH (08:04)
[2017-10-25] MEDS: furosemide 20 MG/2 ML vial IV SCH (08:04)
[2017-10-25] MEDS: acyclovir 200 MG capsule PO SCH (08:04)
[2017-10-25] MEDS: carVEDilol 3.125mg tablet PO SCH (08:04)
[2017-10-25] MEDS: aspirin 81mg tablet.DR PO SCH (08:05)
[2017-10-25 11:00] VITALS: BP 138/80
[2017-10-25] MEDS: levoFLOXACIN 500mg tablet PO SCH (11:25)
[2017-10-25] MEDS ORDERED: LEVO500T89 PO (11:52)
[2017-10-25] MEDS ORDERED: COR3.125T PO (11:52)
[2017-10-25] MEDS ORDERED: FURO-150 PO (11:52)
[2017-10-25] MEDS ORDERED: PRED20TA PO (11:52)
[2017-10-25] MEDS ORDERED: NITR0.4T51 SL (11:52)
[2017-10-25] MEDS ORDERED: ASPI-1071 PO (11:52)
[2017-10-25] MEDS ORDERED: POTA20TA19 PO (11:52)
== END 2017-10-25 13:00 | disposition home or self-care (01) | DRG 291 ==
LOC: ER 14:46 → ED HOLD 16:50 → PCU 3S 10-19 08:38
PROVIDERS: ADMIT Internal Medicine; ATTEND Family Medicine
PROC: 4A02XM4 Measurement of Cardiac Total Activity, External Approach (ICD-10-PCS; principal; 2017-10-19)
PROC: 3E073KZ Introduction of Other Diagnostic Substance into Coronary Artery, Percutaneous Approach (ICD-10-PCS; 2017-10-19)
DX: I13.0 Hypertensive heart and chronic kidney disease with heart failure and stage 1 through stage 4 chronic kidney disease, or unspecified chronic kidney disease (principal); E43 Unspecified severe protein-calorie malnutrition; J96.00 Acute respiratory failure, unspecified whether with hypoxia or hypercapnia; N17.9 Acute kidney failure, unspecified; J44.0 Chronic obstructive pulmonary disease with (acute) lower respiratory infection; E11.22 Type 2 diabetes mellitus with diabetic chronic kidney disease; K86.1 Other chronic pancreatitis; N18.3 Chronic kidney disease, stage 3 (moderate); I50.43 Acute on chronic combined systolic (congestive) and diastolic (congestive) heart failure; J44.1 Chronic obstructive pulmonary disease with (acute) exacerbation; E11.65 Type 2 diabetes mellitus with hyperglycemia; E66.9 Obesity, unspecified; I44.7 Left bundle-branch block, unspecified; E03.9 Hypothyroidism, unspecified; I25.10 Atherosclerotic heart disease of native coronary artery without angina pectoris; M10.9 Gout, unspecified; Z79.82 Long term (current) use of aspirin; Z79.84 Long term (current) use of oral hypoglycemic drugs; Z79.899 Other long term (current) drug therapy; Z85.41 Personal history of malignant neoplasm of cervix uteri; Z68.33 Body mass index [BMI] 33.0-33.9, adult; Z88.2 Allergy status to sulfonamides; Z88.1 Allergy status to other antibiotic agents; Z88.6 Allergy status to analgesic agent; Z88.8 Allergy status to other drugs, medicaments and biological substances
CPT/HCPCS: 36415; 36600; 71045; 76775; 78452; 80048; 80053; 81001; 82043; 82803; 82948; 83735; 83880; 84300; 84439; 84443; 84484; 85018; 85025; 87070; 87502; 87503; 93005; 93017; 93308; 94640; 94760; 99285; A6257; A6258; A9500; J0280; J1644; J1650; J1815; J1940; J2270; J2930; J7512; J8540

== ENCOUNTER 2017-10-27 11:58 | Emergency (ER) | payer BC ==
[~2017-10-27] VITALS: Ht 157.5 cm; Wt 84.0 kg
[~2017-10-27 11:58] MED LIST changes: +ASPI-1071 PO; -BENZ-16 PO; +COR3.125T PO; +FURO-150 PO; -METF500T PO; -METO1TAB39; +NITR0.4T51 SL; +POTA20TA19 PO; -PROB500T10 PO
[2017-10-27 12:50] LABS: BASOPHILS % (AUTO) 0.2 % (0-1); EOSINOPHILS % (AUTO) 0.1 % (0-6); HEMATOCRIT 43.8 % (35.0-45.0); HEMOGLOBIN 14.4 g/dl (12.0-16.0); LYMPHOCYTES # (AUTO) 1.5 X10'3 (1.1-4.8); LYMPHOCYTES % (AUTO) 7.3 % (21-51); MEAN CORPUSCULAR HEMOGLOBIN 29.1 PG (27.0-31.0); MEAN CORPUSCULAR HGB CONC 32.9 % (33.0-36.5); MEAN CORPUSCULAR VOLUME 88.4 FL (78-98); MEAN PLATELET VOLUME 8.7 FL (7.4-10.4); MONOCYTES # (AUTO) 0.7 X10'3 (0-0.9); MONOCYTES % (AUTO) 3.4 % (2-12); NEUTROPHILS # (AUTO) 18.3 X10'3 (1.8-7.7); PLATELET COUNT 323 X10'3 (140-440); RED BLOOD COUNT 4.95 X10'6 (4.20-5.60); RED CELL DISTRIBUTION WIDTH 16.9 % (11.5-14.5); WHITE BLOOD COUNT 20.5 X10'3 (4.5-11.0)
[2017-10-27] MEDS ORDERED: AMOX-422 PO (13:02)
[2017-10-27 13:12] LABS: ALANINE AMINOTRANSFERASE 46 U/L (12-78); ALBUMIN 2.8 G/DL (3.4-5.0); ALBUMIN/GLOBULIN RATIO 0.7 (1.1-1.5); ALKALINE PHOSPHATASE 147 IU/L (46-116); ANION GAP 8 (8-16); ASPARTATE AMINO TRANSFERASE 30 U/L (10-37); BILIRUBIN,TOTAL 0.4 MG/DL (0.1-1.0); BLOOD UREA NITROGEN 38 MG/DL (7-18); BUN/CREATININE RATIO 29.5 (6.6-38.0); CHLORIDE 100 MMOL/L (99-107); CREATININE 1.29 MG/DL (0.40-0.90); GLUCOSE 312 MG/DL (70-104); SODIUM 138 MMOL/L (135-145); TOTAL CARBON DIOXIDE 30.2 MMOL/L (24-32); TOTAL PROTEIN 6.7 G/DL (6.4-8.2); eGFR 42 ML/MIN
[2017-10-27 13:14] LABS: NEUTROPHILS % (MANUAL) 83 % (42-75); TOTAL CELLS COUNTED 100
[2017-10-27 13:15] LABS: ANISOCYTOSIS 1+; LYMPHOCYTES % (MANUAL) 8 % (21-51); METAMYLEOCYTES% (MANUAL) 5 % (0-0); MONOCYTES % (MANUAL) 2 % (2-12); MYELOCYTES % (MANUAL) 1 % (0-0); PLATELET ESTIMATE NORMAL; PROMYELOCYTES % (MANUAL) 1 % (0-0)
[2017-10-27 13:18] VITALS: BP 150/92
== END 2017-10-27 13:21 | disposition home or self-care (01) ==
LOC: ER 11:59
DX: J32.9 Chronic sinusitis, unspecified (principal); E11.65 Type 2 diabetes mellitus with hyperglycemia; I13.0 Hypertensive heart and chronic kidney disease with heart failure and stage 1 through stage 4 chronic kidney disease, or unspecified chronic kidney disease; E11.22 Type 2 diabetes mellitus with diabetic chronic kidney disease; N18.9 Chronic kidney disease, unspecified; E03.9 Hypothyroidism, unspecified; J45.909 Unspecified asthma, uncomplicated; Z88.8 Allergy status to other drugs, medicaments and biological substances; Z88.2 Allergy status to sulfonamides; Z88.5 Allergy status to narcotic agent; Z79.899 Other long term (current) drug therapy; Z79.82 Long term (current) use of aspirin; Z85.89 Personal history of malignant neoplasm of other organs and systems
CPT/HCPCS: 36415; 71046; 80053; 83880; 84484; 85025; 93005; 99285

== ENCOUNTER 2017-12-20 02:39 | Inpatient (IN) | payer BC ==
[~2017-12-20] VITALS: Ht 157.5 cm; Wt 73.0 kg
[~2017-12-20 02:39] MED LIST changes: -POTA20TA19 PO
[2017-12-20] MEDS ORDERED: albuterol 2.5 MG/3 ML nebule CONTNEB PRN (03:55)
[2017-12-20] MEDS ORDERED: methylPREDNISolone sod succ 125mg/2ml vial IV ONE (03:55)
[2017-12-20 04:01] LABS: BASOPHILS # (AUTO) 0.1 X10'3 (0-0.2); BASOPHILS % (AUTO) 0.8 % (0-1); EOSINOPHILS # (AUTO) 0.7 X10'3 (0-0.9); HEMATOCRIT 39.8 % (35.0-45.0); HEMOGLOBIN 13.2 g/dl (12.0-16.0); LYMPHOCYTES # (AUTO) 2.1 X10'3 (1.1-4.8); LYMPHOCYTES % (AUTO) 19.4 % (21-51); MEAN CORPUSCULAR HGB CONC 33.1 % (33.0-36.5); MEAN CORPUSCULAR VOLUME 90.5 FL (78-98); MEAN PLATELET VOLUME 8.9 FL (7.4-10.4); MONOCYTES # (AUTO) 0.8 X10'3 (0-0.9); MONOCYTES % (AUTO) 6.9 % (2-12); NEUTROPHILS # (AUTO) 7.4 X10'3 (1.8-7.7); NEUTROPHILS % (AUTO) 66.9 % (42-75); PLATELET COUNT 315 X10'3 (140-440); RED CELL DISTRIBUTION WIDTH 17.2 % (11.5-14.5)
[2017-12-20 04:06] LABS: PARTIAL THROMBOPLASTIN TIME 26 SECONDS (22-32); PROTHROMBIN TIME 10.2 SECONDS (9.0-12.0)
[2017-12-20 04:11] LABS: ALANINE AMINOTRANSFERASE 20 U/L (12-78); ALBUMIN 3.4 G/DL (3.4-5.0); ALBUMIN/GLOBULIN RATIO 0.9 (1.1-1.5); ALKALINE PHOSPHATASE 120 IU/L (46-116); ANION GAP 8 (8-16); ASPARTATE AMINO TRANSFERASE 19 U/L (10-37); BILIRUBIN,TOTAL 0.5 MG/DL (0.1-1.0); BLOOD UREA NITROGEN 19 MG/DL (7-18); BUN/CREATININE RATIO 14.4 (6.6-38.0); CALCIUM 8.9 MG/DL (8.5-10.1); CHLORIDE 101 MMOL/L (99-107); CREATININE 1.32 MG/DL (0.40-0.90); GLUCOSE 156 MG/DL (70-104); POTASSIUM 3.5 MMOL/L (3.5-5.1); SODIUM 138 MMOL/L (135-145); TOTAL PROTEIN 7.2 G/DL (6.4-8.2); eGFR 41 ML/MIN
[2017-12-20 04:19] LABS: PHOSPHORUS 3.6 MG/DL (2.3-4.5)
[2017-12-20] MEDS ORDERED: furosemide 10 MG/1 ML 10ml inj IV ONE (05:00)
[2017-12-20] MEDS ORDERED: SPIR25TA3 PO (05:04)
[2017-12-20] MEDS ORDERED: magnesium hydroxide 30ml (MOM) UD suspension PO PRN (05:05)
[2017-12-20] MEDS ORDERED: acetaminophen 325mg tablet PO PRN (05:05)
[2017-12-20] MEDS ORDERED: ondansetron/PF 4mg/2ml inj IV PRN (05:05)
[2017-12-20] MEDS ORDERED: mag hydrox/Alum hydrox/simeth 30ml oral suspension PO PRN (05:05)
[2017-12-20] MEDS ORDERED: nitroGLYCERIN 0.4mg SUBLingual tab SL PRN (05:10)
[2017-12-20] MEDS ORDERED: albuterol 2.5 MG/3 ML nebule NEB PRN (05:10)
[2017-12-20 05:28] LABS: HEMOGLOBIN A1C 7.6 % (4.5-6.2)
[2017-12-20 07:00] VITALS: BP 146/91
[2017-12-20] MEDS ORDERED: albuterol 2.5 MG/3 ML nebule NEB SCH (07:00)
[2017-12-20] MEDS: heparin, porcine 5000 units/ml vial SQ SCH ×3 (08:00→19:32)
[2017-12-20] MEDS ORDERED: carVEDilol 3.125mg tablet PO SCH (08:00)
[2017-12-20] MEDS ORDERED: non-formulary drug (Fluticasone/Salmeterol (Advair 250-50 Diskus) 1 PUFFS) INH SCH (08:00)
[2017-12-20] MEDS ORDERED: furosemide 10 MG/1 ML 10ml inj IV SCH (08:00)
[2017-12-20] MEDS ORDERED: BUDESONIDE 0.25 MG/2 ML AMPUL.NEB IH SCH (09:00)
[2017-12-20] MEDS: levoTHYROXINE 100mcg tablet PO SCH (09:30)
[2017-12-20] MEDS: aspirin 81mg tablet.DR PO SCH (09:31)
[2017-12-20] MEDS: oxybutynin 5mg tablet PO SCH ×2 (09:31→19:32)
[2017-12-20] MEDS: acyclovir 200 MG capsule PO SCH (09:31)
[2017-12-20 11:00] VITALS: BP 121/91
[2017-12-20] MEDS ORDERED: dextrose ORAL solution 15 GM/59 ML bottle PO PRN ×4 (12:45)
[2017-12-20] MEDS ORDERED: insulin Lispro (HumaLOG) vial - multi-dose SQ SCH (12:45)
[2017-12-20] MEDS ORDERED: dextrose 50%-water 50ml dispensing syringe IV PRN ×4 (12:45)
[2017-12-20] MEDS ORDERED: glucagon, human recombinant 1mg kit SUBCUT PRN (12:45)
[2017-12-20] MEDS ORDERED: MESSAGE TO PHARMACY PO ONE ×2 (12:45)
[2017-12-20] MEDS: insulin Lispro (HumaLOG) vial - multi-dose SQ SCH ×2 (14:07→19:30)
[2017-12-20 15:00] VITALS: BP 140/73
[2017-12-20] MEDS: furosemide 10 MG/1 ML 10ml inj IV SCH ×2 (15:28→19:31)
[2017-12-20 18:00] VITALS: BP 128/82
[2017-12-20] MEDS ORDERED: insulin glargine (Lantus) pen - multi-dose SQ SCH (21:00)
[2017-12-20] MEDS: insulin glargine (Lantus) pen - multi-dose SQ SCH (21:20)
[2017-12-20 22:00] VITALS: BP 126/83
[2017-12-21 02:00] VITALS: BP 113/52
[2017-12-21 05:36] LABS: BASOPHILS % (AUTO) 0 % (0-1); EOSINOPHILS # (AUTO) 0.2 X10'3 (0-0.9); HEMATOCRIT 39.6 % (35.0-45.0); HEMOGLOBIN 12.9 g/dl (12.0-16.0); LYMPHOCYTES # (AUTO) 1.6 X10'3 (1.1-4.8); LYMPHOCYTES % (AUTO) 7.4 % (21-51); MEAN CORPUSCULAR HEMOGLOBIN 29.9 PG (27.0-31.0); MEAN CORPUSCULAR HGB CONC 32.6 % (33.0-36.5); MEAN CORPUSCULAR VOLUME 91.7 FL (78-98); MEAN PLATELET VOLUME 8.9 FL (7.4-10.4); MONOCYTES # (AUTO) 1.5 X10'3 (0-0.9); NEUTROPHILS # (AUTO) 17.9 X10'3 (1.8-7.7); NEUTROPHILS % (AUTO) 84.6 % (42-75); PLATELET COUNT 325 X10'3 (140-440); RED BLOOD COUNT 4.31 X10'6 (4.20-5.60); RED CELL DISTRIBUTION WIDTH 17.8 % (11.5-14.5); WHITE BLOOD COUNT 21.1 X10'3 (4.5-11.0)
[2017-12-21 06:00] VITALS: BP 90/44
[2017-12-21 06:03] LABS: ALANINE AMINOTRANSFERASE 19 U/L (12-78); ALBUMIN 3.2 G/DL (3.4-5.0); ALBUMIN/GLOBULIN RATIO 0.8 (1.1-1.5); ALKALINE PHOSPHATASE 90 IU/L (46-116); ANION GAP 9 (8-16); ASPARTATE AMINO TRANSFERASE 15 U/L (10-37); BILIRUBIN,TOTAL 0.6 MG/DL (0.1-1.0); BLOOD UREA NITROGEN 31 MG/DL (7-18); BUN/CREATININE RATIO 22.3 (6.6-38.0); CALCIUM 9.1 MG/DL (8.5-10.1); CHLORIDE 100 MMOL/L (99-107); CHOL/HDL RATIO 2.7 (0.00-4.99); CHOLESTEROL 153 MG/DL (0-200); CREATININE 1.39 MG/DL (0.40-0.90); GLUCOSE 152 MG/DL (70-104); HDL CHOLESTEROL 56 MG/DL (35-60); LDL CHOLESTEROL 89 MG/DL (50-100); POTASSIUM 3.5 MMOL/L (3.5-5.1); SODIUM 141 MMOL/L (135-145); TOTAL CARBON DIOXIDE 32.5 MMOL/L (24-32); TOTAL PROTEIN 7.1 G/DL (6.4-8.2); TRIGLYCERIDES 60 MG/DL (20-135); eGFR 38 ML/MIN
[2017-12-21] MEDS ORDERED: CALC600T12 (06:41)
[2017-12-21] MEDS: aspirin 81mg tablet.DR PO SCH (07:57)
[2017-12-21] MEDS: levoTHYROXINE 100mcg tablet PO SCH (07:57)
[2017-12-21] MEDS: furosemide 10 MG/1 ML 10ml inj IV SCH ×2 (07:57→19:56)
[2017-12-21] MEDS: oxybutynin 5mg tablet PO SCH ×2 (07:57→19:56)
[2017-12-21] MEDS: heparin, porcine 5000 units/ml vial SQ SCH ×2 (07:58→19:56)
[2017-12-21] MEDS: acyclovir 200 MG capsule PO SCH (07:58)
[2017-12-21] MEDS: insulin Lispro (HumaLOG) vial - multi-dose SQ SCH ×3 (08:12→19:25)
[2017-12-21 11:00] VITALS: BP 128/81
[2017-12-21 15:00] VITALS: BP 121/74
[2017-12-21 15:59] LABS: BASOPHILS % (AUTO) 0.2 % (0-1); EOSINOPHILS # (AUTO) 0.2 X10'3 (0-0.9); EOSINOPHILS % (AUTO) 0.9 % (0-6); HEMATOCRIT 41.3 % (35.0-45.0); HEMOGLOBIN 13.7 g/dl (12.0-16.0); LYMPHOCYTES # (AUTO) 2.8 X10'3 (1.1-4.8); LYMPHOCYTES % (AUTO) 13.9 % (21-51); MEAN CORPUSCULAR HGB CONC 33.2 % (33.0-36.5); MEAN CORPUSCULAR VOLUME 90.2 FL (78-98); MEAN PLATELET VOLUME 8.7 FL (7.4-10.4); MONOCYTES # (AUTO) 1.5 X10'3 (0-0.9); MONOCYTES % (AUTO) 7.4 % (2-12); NEUTROPHILS # (AUTO) 15.4 X10'3 (1.8-7.7); NEUTROPHILS % (AUTO) 77.6 % (42-75); PLATELET COUNT 341 X10'3 (140-440); RED BLOOD COUNT 4.58 X10'6 (4.20-5.60); RED CELL DISTRIBUTION WIDTH 17.5 % (11.5-14.5); WHITE BLOOD COUNT 19.9 X10'3 (4.5-11.0)
[2017-12-21 18:00] VITALS: BP 120/72
[2017-12-21] MEDS: insulin glargine (Lantus) pen - multi-dose SQ SCH (21:23)
[2017-12-21 21:27] LABS: CLARITY,URINE CLEAR (Clear); COLOR,URINE STRAW (Yellow); GLUCOSE, URINE NEGATIVE (Neg); KETONES,URINE NEGATIVE (Neg); LEUKOCYTE ESTERASE ,URINE TRACE (Neg); NITRITES, URINE NEGATIVE (Neg); OCCULT BLOOD,URINE NEGATIVE (Neg); PROTEIN,URINE NEGATIVE (Neg); UROBILINOGEN,URINE 0.2 E.U/dL (0.2-1.0)
[2017-12-21 21:28] LABS: UA COLLECTION TYPE VOIDED
[2017-12-21 21:39] LABS: BACTERIA,URINE FEW /HPF (Neg); RBC,URINE NONE SEEN /HPF (0-2); SQUAMOUS EPITHELIAL CELL,UR FEW /LPF (FEW); WBC,URINE 0-4 /HPF (0-4)
[2017-12-21 22:00] VITALS: BP 126/68
[2017-12-22 02:00] VITALS: BP 113/62
[2017-12-22 05:30] LABS: BASOPHILS # (AUTO) 0.1 X10'3 (0-0.2); BASOPHILS % (AUTO) 0.3 % (0-1); EOSINOPHILS # (AUTO) 0.3 X10'3 (0-0.9); EOSINOPHILS % (AUTO) 2.2 % (0-6); HEMATOCRIT 43.8 % (35.0-45.0); HEMOGLOBIN 14.6 g/dl (12.0-16.0); LYMPHOCYTES # (AUTO) 2.7 X10'3 (1.1-4.8); LYMPHOCYTES % (AUTO) 16.8 % (21-51); MEAN CORPUSCULAR HEMOGLOBIN 29.9 PG (27.0-31.0); MEAN CORPUSCULAR HGB CONC 33.3 % (33.0-36.5); MEAN PLATELET VOLUME 8.7 FL (7.4-10.4); MONOCYTES # (AUTO) 1.4 X10'3 (0-0.9); MONOCYTES % (AUTO) 8.6 % (2-12); NEUTROPHILS # (AUTO) 11.5 X10'3 (1.8-7.7); NEUTROPHILS % (AUTO) 72.1 % (42-75); PLATELET COUNT 339 X10'3 (140-440); RED BLOOD COUNT 4.86 X10'6 (4.20-5.60); RED CELL DISTRIBUTION WIDTH 17.6 % (11.5-14.5)
[2017-12-22 05:54] LABS: ALANINE AMINOTRANSFERASE 31 U/L (12-78); ALBUMIN 3.4 G/DL (3.4-5.0); ALBUMIN/GLOBULIN RATIO 0.8 (1.1-1.5); ALKALINE PHOSPHATASE 99 IU/L (46-116); ANION GAP 10 (8-16); ASPARTATE AMINO TRANSFERASE 26 U/L (10-37); BILIRUBIN,TOTAL 0.6 MG/DL (0.1-1.0); BLOOD UREA NITROGEN 38 MG/DL (7-18); BUN/CREATININE RATIO 29.5 (6.6-38.0); CALCIUM 9.3 MG/DL (8.5-10.1); CHLORIDE 100 MMOL/L (99-107); CREATININE 1.29 MG/DL (0.40-0.90); GLUCOSE 138 MG/DL (70-104); POTASSIUM 3.2 MMOL/L (3.5-5.1); SODIUM 143 MMOL/L (135-145); TOTAL CARBON DIOXIDE 32.8 MMOL/L (24-32); TOTAL PROTEIN 7.5 G/DL (6.4-8.2); eGFR 42 ML/MIN
[2017-12-22 06:00] VITALS: BP 119/61
[2017-12-22] MEDS ORDERED: levoFLOXACIN-Levaquin 750MG/D5 150 ML IV SCH (08:00)
[2017-12-22] MEDS: heparin, porcine 5000 units/ml vial SQ SCH (08:00)
[2017-12-22] MEDS: levoTHYROXINE 100mcg tablet PO SCH (08:43)
[2017-12-22] MEDS: furosemide 10 MG/1 ML 10ml inj IV SCH (08:43)
[2017-12-22] MEDS: aspirin 81mg tablet.DR PO SCH (08:43)
[2017-12-22] MEDS: oxybutynin 5mg tablet PO SCH (08:43)
[2017-12-22] MEDS: acyclovir 200 MG capsule PO SCH (08:44)
[2017-12-22] MEDS ORDERED: potassium Cl 20 mEq SR tablet PO STA (10:14)
[2017-12-22] MEDS ORDERED: NITR100C6 PO (10:21)
[2017-12-22] MEDS ORDERED: potassium Cl 20 mEq SR tablet PO SCH (11:00)
== END 2017-12-22 11:56 | disposition home or self-care (01) | DRG 291 ==
LOC: ER 02:40 → ED HOLD 05:01 → PCU 3S 06:49 → CMPBEDREQ 19:38
PROVIDERS: ADMIT Internal Medicine; ATTEND Family Medicine
DX: I13.0 Hypertensive heart and chronic kidney disease with heart failure and stage 1 through stage 4 chronic kidney disease, or unspecified chronic kidney disease (principal); I50.23 Acute on chronic systolic (congestive) heart failure; E11.22 Type 2 diabetes mellitus with diabetic chronic kidney disease; I27.20 Pulmonary hypertension, unspecified; E03.9 Hypothyroidism, unspecified; I44.1 Atrioventricular block, second degree; I44.7 Left bundle-branch block, unspecified; M10.9 Gout, unspecified; J44.9 Chronic obstructive pulmonary disease, unspecified; N18.9 Chronic kidney disease, unspecified; Z82.49 Family history of ischemic heart disease and other diseases of the circulatory system; Z88.5 Allergy status to narcotic agent; Z90.49 Acquired absence of other specified parts of digestive tract
CPT/HCPCS: 36415; 71045; 71046; 80053; 80061; 81001; 82948; 83036; 83605; 83735; 83880; 84100; 84443; 84484; 85025; 85610; 85730; 87040; 87070; 87077; 87088; 87186; 93005; 94644; 94760; 96374; 99285; J1644; J1815; J1940; J1956; J2930

== ENCOUNTER 2018-01-16 10:05 | Emergency (ER) | payer BC ==
[~2018-01-16] VITALS: Ht 157.5 cm; Wt 78.0 kg
[~2018-01-16 10:05] MED LIST changes: -ACYC200C PO; -CHOL100024 PO; -FURO-150 PO; -LEVO500T89 PO; +NITR100C6 PO; -PRED20TA PO; +SPIR25TA5 PO
[2018-01-16 10:36] LABS: BASOPHILS % (AUTO) 0.1 % (0-1); EOSINOPHILS # (AUTO) 0.5 X10'3 (0-0.9); EOSINOPHILS % (AUTO) 3.5 % (0-6); HEMATOCRIT 38.5 % (35.0-45.0); HEMOGLOBIN 12.7 g/dl (12.0-16.0); LYMPHOCYTES # (AUTO) 1.6 X10'3 (1.1-4.8); LYMPHOCYTES % (AUTO) 11.9 % (21-51); MEAN CORPUSCULAR HEMOGLOBIN 29.9 PG (27.0-31.0); MEAN CORPUSCULAR VOLUME 90.6 FL (78-98); MEAN PLATELET VOLUME 8.3 FL (7.4-10.4); MONOCYTES # (AUTO) 0.9 X10'3 (0-0.9); MONOCYTES % (AUTO) 6.5 % (2-12); NEUTROPHILS # (AUTO) 10.4 X10'3 (1.8-7.7); PLATELET COUNT 306 X10'3 (140-440); RED BLOOD COUNT 4.25 X10'6 (4.20-5.60); RED CELL DISTRIBUTION WIDTH 16.4 % (11.5-14.5); WHITE BLOOD COUNT 13.3 X10'3 (4.5-11.0)
[2018-01-16 10:46] LABS: PARTIAL THROMBOPLASTIN TIME 25 SECONDS (22-32); PROTHROMBIN TIME 10.1 SECONDS (9.0-12.0)
[2018-01-16 10:50] LABS: ALANINE AMINOTRANSFERASE 25 U/L (12-78); ALBUMIN/GLOBULIN RATIO 0.8 (1.1-1.5); ALKALINE PHOSPHATASE 123 IU/L (46-116); ANION GAP 7 (8-16); ASPARTATE AMINO TRANSFERASE 15 U/L (10-37); BILIRUBIN,TOTAL 0.7 MG/DL (0.1-1.0); BLOOD UREA NITROGEN 18 MG/DL (7-18); BUN/CREATININE RATIO 13.6 (6.6-38.0); CHLORIDE 101 MMOL/L (99-107); CREATININE 1.32 MG/DL (0.40-0.90); GLUCOSE 212 MG/DL (70-104); POTASSIUM 3.6 MMOL/L (3.5-5.1); SODIUM 138 MMOL/L (135-145); TOTAL CARBON DIOXIDE 29.6 MMOL/L (24-32); TOTAL PROTEIN 6.8 G/DL (6.4-8.2); eGFR 41 ML/MIN
[2018-01-16] MEDS ORDERED: predniSONE 20 mg tablet PO ONE (12:00)
[2018-01-16] MEDS ORDERED: ipratropium/albuterol 3ml nebule NEB ONE (12:00)
[2018-01-16] MEDS ORDERED: AZIT250T PO (12:21)
[2018-01-16] MEDS ORDERED: PRED10TA23 PO (12:21)
[2018-01-16 12:31] VITALS: BP 153/72
== END 2018-01-16 12:41 | disposition home or self-care (01) ==
LOC: ER 10:05
DX: J44.1 Chronic obstructive pulmonary disease with (acute) exacerbation (principal); I11.0 Hypertensive heart disease with heart failure; I50.9 Heart failure, unspecified; E11.9 Type 2 diabetes mellitus without complications; E03.9 Hypothyroidism, unspecified; Z98.890 Other specified postprocedural states; Z88.2 Allergy status to sulfonamides; Z88.8 Allergy status to other drugs, medicaments and biological substances; Z79.82 Long term (current) use of aspirin; Z79.2 Long term (current) use of antibiotics; Z79.899 Other long term (current) drug therapy
CPT/HCPCS: 36415; 71045; 80053; 84484; 85025; 85610; 85730; 93005; 94640; 94760; 99285; J7512

== ENCOUNTER 2018-01-27 07:27 | Inpatient (IN) | payer BC ==
[~2018-01-27] VITALS: Ht 157.5 cm; Wt 76.0 kg
[~2018-01-27 07:27] MED LIST changes: +AZIT250T PO; +PRED10TA23 PO
[2018-01-27 07:51] LABS: BASOPHILS # (AUTO) 0.1 X10'3 (0-0.2); BASOPHILS % (AUTO) 0.3 % (0-1); EOSINOPHILS # (AUTO) 0.2 X10'3 (0-0.9); EOSINOPHILS % (AUTO) 1.3 % (0-6); HEMATOCRIT 40.5 % (35.0-45.0); HEMOGLOBIN 13.3 g/dl (12.0-16.0); LYMPHOCYTES # (AUTO) 3.6 X10'3 (1.1-4.8); LYMPHOCYTES % (AUTO) 19.7 % (21-51); MEAN CORPUSCULAR HEMOGLOBIN 29.6 PG (27.0-31.0); MEAN CORPUSCULAR VOLUME 89.7 FL (78-98); MEAN PLATELET VOLUME 8.5 FL (7.4-10.4); MONOCYTES # (AUTO) 0.9 X10'3 (0-0.9); MONOCYTES % (AUTO) 4.9 % (2-12); NEUTROPHILS # (AUTO) 13.6 X10'3 (1.8-7.7); NEUTROPHILS % (AUTO) 73.8 % (42-75); PLATELET COUNT 258 X10'3 (140-440); RED BLOOD COUNT 4.51 X10'6 (4.20-5.60); RED CELL DISTRIBUTION WIDTH 16.8 % (11.5-14.5); WHITE BLOOD COUNT 18.4 X10'3 (4.5-11.0)
[2018-01-27] MEDS ORDERED: LORazepam 2 mg/ml vial IV ONE (08:00)
[2018-01-27] MEDS ORDERED: normal saline 1000ML IV soln IVB ONE (08:00)
[2018-01-27] MEDS ORDERED: methylPREDNISolone sod succ 125mg/2ml vial IV ONE (08:00)
[2018-01-27 08:03] LABS: PARTIAL THROMBOPLASTIN TIME 23 SECONDS (22-32)
[2018-01-27 08:10] LABS: ALANINE AMINOTRANSFERASE 39 U/L (12-78); ALBUMIN 3.3 G/DL (3.4-5.0); ALBUMIN/GLOBULIN RATIO 0.9 (1.1-1.5); ALKALINE PHOSPHATASE 133 IU/L (46-116); ANION GAP 9 (8-16); ASPARTATE AMINO TRANSFERASE 17 U/L (10-37); BILIRUBIN,TOTAL 0.8 MG/DL (0.1-1.0); BLOOD UREA NITROGEN 32 MG/DL (7-18); CHLORIDE 101 MMOL/L (99-107); CREATININE 1.39 MG/DL (0.40-0.90); GLUCOSE 182 MG/DL (70-104); POTASSIUM 3.8 MMOL/L (3.5-5.1); SODIUM 139 MMOL/L (135-145); TOTAL CARBON DIOXIDE 28.9 MMOL/L (24-32); TOTAL PROTEIN 6.8 G/DL (6.4-8.2); eGFR 38 ML/MIN
[2018-01-27 08:11] LABS: TOTAL CELLS COUNTED 100
[2018-01-27 08:12] LABS: ANISOCYTOSIS 1+; PLATELET ESTIMATE NORMAL; POLYCHROMASIA 1+
[2018-01-27 08:14] LABS: D-DIMER 0.37 MG/L FEU (0-0.50)
[2018-01-27 08:36] LABS: ABG BASE EXCESS 6.2 mmol/L (-2.0-3.0); ABG HCO3 29.7 mmol/L (22.0-26.0); ABG OXYGEN SATURATION 93.9 % (95-98); ABG PCO2 (T) 38.8 mmHg (32.0-45.0); ABG PH (T) 7.502 (7.350-7.450); ALLEN'S TEST Positive; FCOHb 0.5 % (0.5-1.5); FMetHb 0.3 % (0.3-1.12); FO2Hb 93.1 % (94-100); RESPIRATORY RATE (OBSERVED) 16 b/min; TOTAL HEMOGLOBIN 13.4 G/dl (12.0-16.0)
[2018-01-27] MEDS ORDERED: furosemide 10 MG/1 ML 10ml inj IV ONE (09:20)
[2018-01-27 10:01] LABS: CLARITY,URINE CLEAR (Clear); COLOR,URINE STRAW (Yellow); GLUCOSE, URINE NEGATIVE (Neg); KETONES,URINE NEGATIVE (Neg); LEUKOCYTE ESTERASE ,URINE NEGATIVE (Neg); NITRITES, URINE NEGATIVE (Neg); OCCULT BLOOD,URINE NEGATIVE (Neg); PROTEIN,URINE TRACE mg/dl (Neg); UROBILINOGEN,URINE 0.2 E.U/dL (0.2-1.0)
[2018-01-27] MEDS ORDERED: FURO-150 PO (10:03)
[2018-01-27 10:04] LABS: UA COLLECTION TYPE CLN CATCH MIDSTREAM
[2018-01-27] MEDS ORDERED: POTA10TA19 PO (10:05)
[2018-01-27] MEDS ORDERED: ALBU18HF2 INH (10:06)
[2018-01-27 10:07] LABS: BACTERIA,URINE 1+ /HPF (Neg); MUCUS STRANDS NONE SEEN /LPF (Neg); RBC,URINE 0-2 /HPF (0-2); SQUAMOUS EPITHELIAL CELL,UR FEW /LPF (FEW); WBC,URINE 0-4 /HPF (0-4)
[2018-01-27] MEDS ORDERED: ALB0.5UD IH (10:07)
[2018-01-27] MEDS ORDERED: ACYC-202 PO (10:09)
[2018-01-27] MEDS ORDERED: CALC600T12 PO (10:11)
[2018-01-27] MEDS ORDERED: ASPI81TA52 PO (10:14)
[2018-01-27] MEDS ORDERED: normal saline 1000ml 1,000 ML IV SCH (10:18)
[2018-01-27] MEDS ORDERED: morphine 4 MG/ML inj SYRINge IV PRN ×2 (10:20)
[2018-01-27] MEDS ORDERED: potassium Cl 20 mEq SR tablet PO PRN ×2 (10:20)
[2018-01-27] MEDS ORDERED: magnesium 4gm in 100ml NS 100 ML IV PRN (10:20)
[2018-01-27] MEDS ORDERED: acetaminophen 325mg tablet PO PRN ×2 (10:20)
[2018-01-27] MEDS ORDERED: HYDROcodone/acetaminophen 10/325mg tab PO PRN (10:20)
[2018-01-27] MEDS ORDERED: HYDROcodone/acetaminophen 5mg/325mg tablet PO PRN (10:20)
[2018-01-27] MEDS ORDERED: ondansetron/PF 4mg/2ml inj IV PRN (10:20)
[2018-01-27] MEDS ORDERED: magnesium Cl slow-release 64mg tablet PO PRN (10:20)
[2018-01-27] MEDS ORDERED: magnesium/D5W IVPB 50 ML IV PRN (10:20)
[2018-01-27] MEDS ORDERED: mag hydrox/Alum hydrox/simeth 30ml oral suspension PO PRN (10:20)
[2018-01-27] MEDS ORDERED: potassium Cl 40MEQ/NS 500ml 500 ML IV PRN ×2 (10:20)
[2018-01-27] MEDS ORDERED: magnesium hydroxide 30ml (MOM) UD suspension PO PRN (10:20)
[2018-01-27] MEDS ORDERED: NITR0.4T51 SL (10:24)
[2018-01-27] MEDS ORDERED: albuterol 2.5 MG/3 ML nebule NEB PRN (10:25)
[2018-01-27 12:12] VITALS: BP 132/90
[2018-01-27 16:36] VITALS: BP 139/79
[2018-01-27] MEDS: hyDRALAzine 10mg tablet PO SCH (16:48)
[2018-01-27 19:00] VITALS: BP 131/81
[2018-01-27] MEDS: oxybutynin 5mg tablet PO SCH (19:15)
[2018-01-27] MEDS: carVEDilol 3.125mg tablet PO SCH (19:21)
[2018-01-27] MEDS ORDERED: temazepam 15mg capsule PO PRN (21:00)
[2018-01-28] VITALS: BP 128/87
[2018-01-28] MEDS: hyDRALAzine 10mg tablet PO SCH ×2 (00:16→07:46)
[2018-01-28 05:19] LABS: BASOPHILS % (AUTO) 0.3 % (0-1); EOSINOPHILS % (AUTO) 0.1 % (0-6); HEMATOCRIT 39.5 % (35.0-45.0); HEMOGLOBIN 12.8 g/dl (12.0-16.0); LYMPHOCYTES # (AUTO) 1.1 X10'3 (1.1-4.8); LYMPHOCYTES % (AUTO) 6.4 % (21-51); MEAN CORPUSCULAR HEMOGLOBIN 29.4 PG (27.0-31.0); MEAN CORPUSCULAR HGB CONC 32.5 % (33.0-36.5); MEAN CORPUSCULAR VOLUME 90.4 FL (78-98); MEAN PLATELET VOLUME 9.1 FL (7.4-10.4); MONOCYTES # (AUTO) 0.9 X10'3 (0-0.9); MONOCYTES % (AUTO) 5.4 % (2-12); NEUTROPHILS # (AUTO) 14.5 X10'3 (1.8-7.7); NEUTROPHILS % (AUTO) 87.8 % (42-75); PLATELET COUNT 258 X10'3 (140-440); RED BLOOD COUNT 4.37 X10'6 (4.20-5.60); RED CELL DISTRIBUTION WIDTH 16.6 % (11.5-14.5); WHITE BLOOD COUNT 16.6 X10'3 (4.5-11.0)
[2018-01-28 05:44] LABS: ANION GAP 7 (8-16); BLOOD UREA NITROGEN 34 MG/DL (7-18); BUN/CREATININE RATIO 25.2 (6.6-38.0); CALCIUM 8.7 MG/DL (8.5-10.1); CHLORIDE 101 MMOL/L (99-107); CREATININE 1.35 MG/DL (0.40-0.90); GLUCOSE 207 MG/DL (70-104); POTASSIUM 3.7 MMOL/L (3.5-5.1); SODIUM 141 MMOL/L (135-145); TOTAL CARBON DIOXIDE 32.8 MMOL/L (24-32); eGFR 39 ML/MIN
[2018-01-28 07:00] VITALS: BP 130/95
[2018-01-28] MEDS: carVEDilol 3.125mg tablet PO SCH (07:02)
[2018-01-28] MEDS: oxybutynin 5mg tablet PO SCH (07:47)
[2018-01-28] MEDS ORDERED: levoTHYROXINE 100mcg tablet PO SCH (08:00)
[2018-01-28] MEDS ORDERED: aspirin 81mg tablet.DR PO SCH (08:00)
[2018-01-28] MEDS ORDERED: K and/or MAG REPLACEMENT MC SCH (08:00)
[2018-01-28] MEDS ORDERED: enoxaparin 40mg/0.4ml syringe SQ SCH (08:00)
[2018-01-28] MEDS ORDERED: enoxaparin 40mg/0.4ml syringe SUBCUT SCH (08:00)
[2018-01-28] MEDS ORDERED: spironolactone 25 MG tablet PO SCH (08:00)
[2018-01-28] MEDS ORDERED: hyDRALAzine tablet PO (09:09)
[2018-01-28] MEDS ORDERED: ALBU2.5V7 NEB (09:09)
== END 2018-01-28 09:45 | disposition home or self-care (01) | DRG 291 ==
LOC: ER 07:28 → ED HOLD 09:34 → CANBEDREQ 10:42 → EDBEDREQSVC 10:59 → SUR 3N 11:03
PROVIDERS: ADMIT Internal Medicine; ATTEND Internal Medicine
DX: I13.0 Hypertensive heart and chronic kidney disease with heart failure and stage 1 through stage 4 chronic kidney disease, or unspecified chronic kidney disease (principal); I50.23 Acute on chronic systolic (congestive) heart failure; E03.9 Hypothyroidism, unspecified; E11.22 Type 2 diabetes mellitus with diabetic chronic kidney disease; I25.2 Old myocardial infarction; I27.20 Pulmonary hypertension, unspecified; N18.3 Chronic kidney disease, stage 3 (moderate); T38.0X5A Adverse effect of glucocorticoids and synthetic analogues, initial encounter; J44.9 Chronic obstructive pulmonary disease, unspecified; I44.1 Atrioventricular block, second degree; D72.829 Elevated white blood cell count, unspecified; M10.9 Gout, unspecified; Z88.8 Allergy status to other drugs, medicaments and biological substances; Z80.49 Family history of malignant neoplasm of other genital organs; Z82.49 Family history of ischemic heart disease and other diseases of the circulatory system; Z85.41 Personal history of malignant neoplasm of cervix uteri; Z88.2 Allergy status to sulfonamides; Z79.899 Other long term (current) drug therapy; Z90.49 Acquired absence of other specified parts of digestive tract; Y92.89 Other specified places as the place of occurrence of the external cause
CPT/HCPCS: 36415; 36600; 71045; 80048; 80053; 81001; 82803; 83036; 83605; 83735; 83880; 84145; 84484; 85018; 85025; 85379; 85610; 85730; 87040; 87070; 93306; 94760; 96361; 96374; 96375; 99285; J1650; J1940; J2930; J7030

== ENCOUNTER 2018-02-09 15:14 | Emergency (ER) | payer BC ==
[~2018-02-09] VITALS: Ht 157.5 cm; Wt 79.1 kg
[~2018-02-09 15:14] MED LIST changes: +ALBU18HF2 INH; +ALBU2.5V7 NEB; -ALBU8.5H8 INH; -ASPI-1071 PO; +ASPI81TA52 PO; -AZIT250T PO; +CALC600T12 PO; -COR3.125T PO; -FLUT1DIS4 INH; +FURO-150 PO; -NITR100C6 PO; -PRED10TA23 PO; +hyDRALAzine tablet PO
[2018-02-09 15:30] VITALS: BP 141/80
[2018-02-09] MEDS ORDERED: HYDR-565 PO (16:45)
[2018-02-09] MEDS ORDERED: PRED20TA PO (16:45)
== END 2018-02-09 16:57 | disposition home or self-care (01) ==
LOC: ER 15:15
DX: M10.9 Gout, unspecified (principal); I13.0 Hypertensive heart and chronic kidney disease with heart failure and stage 1 through stage 4 chronic kidney disease, or unspecified chronic kidney disease; E11.22 Type 2 diabetes mellitus with diabetic chronic kidney disease; N18.9 Chronic kidney disease, unspecified; I50.9 Heart failure, unspecified; J44.9 Chronic obstructive pulmonary disease, unspecified; E03.9 Hypothyroidism, unspecified; Z90.89 Acquired absence of other organs; Z88.2 Allergy status to sulfonamides; Z88.5 Allergy status to narcotic agent; Z88.8 Allergy status to other drugs, medicaments and biological substances; Z79.82 Long term (current) use of aspirin; Z79.899 Other long term (current) drug therapy
CPT/HCPCS: 99283

== ENCOUNTER 2018-02-13 10:24 | Day surgery (SDC) | payer BC ==
[2018-02-09 15:29] LABS: BASOPHILS # (AUTO) 0.1 X10'3 (0-0.2); BASOPHILS % (AUTO) 0.9 % (0-1); EOSINOPHILS # (AUTO) 0.1 X10'3 (0-0.9); EOSINOPHILS % (AUTO) 0.9 % (0-6); HEMATOCRIT 44.1 % (35.0-45.0); HEMOGLOBIN 13.8 g/dl (12.0-16.0); LYMPHOCYTES # (AUTO) 1.1 X10'3 (1.1-4.8); LYMPHOCYTES % (AUTO) 7.6 % (21-51); MEAN CORPUSCULAR HEMOGLOBIN 28.5 PG (27.0-31.0); MEAN CORPUSCULAR HGB CONC 31.2 % (33.0-36.5); MEAN CORPUSCULAR VOLUME 91.4 FL (78-98); MEAN PLATELET VOLUME 9.5 FL (7.4-10.4); MONOCYTES # (AUTO) 1.2 X10'3 (0-0.9); MONOCYTES % (AUTO) 8.1 % (2-12); NEUTROPHILS # (AUTO) 12.6 X10'3 (1.8-7.7); NEUTROPHILS % (AUTO) 82.5 % (42-75); PLATELET COUNT 257 X10'3 (140-440); RED BLOOD COUNT 4.82 X10'6 (4.20-5.60); RED CELL DISTRIBUTION WIDTH 15.9 % (11.5-14.5); WHITE BLOOD COUNT 15.1 X10'3 (4.5-11.0)
[2018-02-09 15:34] LABS: INR 0.9 INR; PARTIAL THROMBOPLASTIN TIME 26 SECONDS (22-32); PROTHROMBIN TIME 9.7 SECONDS (9.0-12.0)
[2018-02-09 15:39] LABS: ANION GAP 7 (8-16); BLOOD UREA NITROGEN 19 MG/DL (7-18); BUN/CREATININE RATIO 15.1 (6.6-38.0); CALCIUM 9.7 MG/DL (8.5-10.1); CHLORIDE 96 MMOL/L (99-107); CREATININE 1.26 MG/DL (0.40-0.90); GLUCOSE 136 MG/DL (70-104); POTASSIUM 3.8 MMOL/L (3.5-5.1); SODIUM 133 MMOL/L (135-145); TOTAL CARBON DIOXIDE 30.4 MMOL/L (24-32); eGFR 43 ML/MIN
[2018-02-13] VITALS (11 sets, daily range): BP systolic 135–162; BP diastolic 77–101
[~2018-02-13] VITALS: Ht 157.5 cm; Wt 78.8 kg
[~2018-02-13 10:24] MED LIST changes: +HYDR-565 PO; +PRED20TA PO
[2018-02-13] MEDS ORDERED: LORazepam 0.5 MG tablet PO PRN (10:40)
[2018-02-13] MEDS ORDERED: diphenhydrAMINE 25mg capsule PO PRN (10:40)
[2018-02-13] MEDS ORDERED: normal saline 1000ml 1,000 ML IV SCH (10:40)
[2018-02-13] MEDS ORDERED: HYDR-4069 PO (11:18)
[2018-02-13] MEDS ORDERED: ACYC200C PO (11:18)
[2018-02-13] MEDS ORDERED: DIGO125T PO (11:18)
[2018-02-13] MEDS ORDERED: CHOL10002 PO (11:18)
[2018-02-13] MEDS ORDERED: PRED5TAB PO (11:19)
[2018-02-13] MEDS ORDERED: HYDR-565 PO (11:22)
[2018-02-13] MEDS ORDERED: fentaNYL/PF 50MCG/1 ML 2ML syringe ONE (11:36)
[2018-02-13] MEDS ORDERED: LIDOcaine 1% w/EPI 1:100,000 30ml vial (MDV) ONE (11:36)
[2018-02-13] MEDS ORDERED: midazolam 2 mg/2 ml injection ONE (11:36)
[2018-02-13] MEDS ORDERED: iohexol 350MG/ML 100ml bottle IV ONE ×2 (11:36→12:41)
[2018-02-13] MEDS ORDERED: heparin 1,000unit/ml 10ml vial 10 ML ONE (12:41)
[2018-02-13] MEDS ORDERED: furosemide 40mg/4ml inj ONE (12:44)
[2018-02-13] MEDS ORDERED: ticagrelor 90mg tablet ONE (12:54)
== END 2018-02-13 17:40 | disposition home or self-care (01) ==
LOC: SSTAY O 10:24
PROVIDERS: ATTEND Internal Medicine Interventional Cardiology
DX: I25.118 Atherosclerotic heart disease of native coronary artery with other forms of angina pectoris (principal); E11.22 Type 2 diabetes mellitus with diabetic chronic kidney disease; I13.0 Hypertensive heart and chronic kidney disease with heart failure and stage 1 through stage 4 chronic kidney disease, or unspecified chronic kidney disease; N18.3 Chronic kidney disease, stage 3 (moderate); I50.9 Heart failure, unspecified; I25.2 Old myocardial infarction; I44.7 Left bundle-branch block, unspecified; I27.20 Pulmonary hypertension, unspecified; M19.90 Unspecified osteoarthritis, unspecified site; I44.39 Other atrioventricular block; M85.88 Other specified disorders of bone density and structure, other site; E03.9 Hypothyroidism, unspecified; I34.0 Nonrheumatic mitral (valve) insufficiency; J44.9 Chronic obstructive pulmonary disease, unspecified; Z79.891 Long term (current) use of opiate analgesic; Z88.2 Allergy status to sulfonamides; Z88.5 Allergy status to narcotic agent; Z86.74 Personal history of sudden cardiac arrest; Z90.49 Acquired absence of other specified parts of digestive tract; Z90.89 Acquired absence of other organs; Z86.14 Personal history of Methicillin resistant Staphylococcus aureus infection; Z80.49 Family history of malignant neoplasm of other genital organs; Z79.82 Long term (current) use of aspirin; Z79.1 Long term (current) use of non-steroidal anti-inflammatories (NSAID); Z88.8 Allergy status to other drugs, medicaments and biological substances; Z79.899 Other long term (current) drug therapy; Z98.890 Other specified postprocedural states
CPT/HCPCS: 36415; 80048; 80162; 85025; 85610; 85730; 93458; 99152; 99153; A6257; C1760; C1769; C1874; C9600; J1644; J1940; J2250; J3010; J3490; J7030; Q0163; Q9967; A4620

== ENCOUNTER 2018-02-25 12:37 | Inpatient (IN) | payer BC ==
[2018-02-25] VITALS (11 sets, daily range): BP systolic 84–125; BP diastolic 49–76
[~2018-02-25] VITALS: Ht 160 cm; Wt 82.5 kg
[~2018-02-25 12:37] MED LIST changes: +ACYC200C PO; -ALBU2.5V7 NEB; -ASPI81TA52 PO; +CHOL10002 PO; +DIGO125T PO; +HYDR-4069 PO; -PRED20TA PO; +PRED5TAB PO; -hyDRALAzine tablet PO
[2018-02-25] MEDS ORDERED: propofol 1000mg/100ml bottle 100 ML IV ONE (13:00)
[2018-02-25 13:01] LABS: BASOPHILS % (AUTO) 0.2 % (0-1); EOSINOPHILS # (AUTO) 0.6 X10'3 (0-0.9); EOSINOPHILS % (AUTO) 2.6 % (0-6); HEMATOCRIT 44.8 % (35.0-45.0); HEMOGLOBIN 14.3 g/dl (12.0-16.0); LYMPHOCYTES # (AUTO) 3.6 X10'3 (1.1-4.8); LYMPHOCYTES % (AUTO) 15.1 % (21-51); MEAN CORPUSCULAR HEMOGLOBIN 29.3 PG (27.0-31.0); MEAN CORPUSCULAR VOLUME 91.5 FL (78-98); MEAN PLATELET VOLUME 9.4 FL (7.4-10.4); MONOCYTES # (AUTO) 1.2 X10'3 (0-0.9); MONOCYTES % (AUTO) 4.9 % (2-12); NEUTROPHILS # (AUTO) 18.3 X10'3 (1.8-7.7); NEUTROPHILS % (AUTO) 77.2 % (42-75); PLATELET COUNT 358 X10'3 (140-440); RED BLOOD COUNT 4.89 X10'6 (4.20-5.60); RED CELL DISTRIBUTION WIDTH 16.7 % (11.5-14.5); WHITE BLOOD COUNT 23.8 X10'3 (4.5-11.0)
[2018-02-25 13:10] LABS: PARTIAL THROMBOPLASTIN TIME 23 SECONDS (22-32)
[2018-02-25 13:16] LABS: ALANINE AMINOTRANSFERASE 35 U/L (12-78); ALBUMIN 3.2 G/DL (3.4-5.0); ALBUMIN/GLOBULIN RATIO 0.8 (1.1-1.5); ALKALINE PHOSPHATASE 112 IU/L (46-116); ANION GAP 19 (8-16); ASPARTATE AMINO TRANSFERASE 39 U/L (10-37); BILIRUBIN,TOTAL 0.6 MG/DL (0.1-1.0); BLOOD UREA NITROGEN 19 MG/DL (7-18); BUN/CREATININE RATIO 9.8 (6.6-38.0); CALCIUM 9.3 MG/DL (8.5-10.1); CHLORIDE 101 MMOL/L (99-107); CREATININE 1.94 MG/DL (0.40-0.90); GLUCOSE 373 MG/DL (70-104); SODIUM 138 MMOL/L (135-145); TOTAL CARBON DIOXIDE 18.5 MMOL/L (24-32); TOTAL PROTEIN 7.1 G/DL (6.4-8.2); eGFR 26 ML/MIN
[2018-02-25 13:20] LABS: CREATINE KINASE 87 U/L (26-192); ETHANOL < 0.010 GM/DL (0.0-0.010); TROPONIN I 0.13 NG/ML (0.0-0.05)
[2018-02-25 13:28] LABS: POTASSIUM 4.5 MMOL/L (3.5-5.1)
[2018-02-25 13:30] LABS: ABG BASE EXCESS -8.6 mmol/L (-2.0-3.0); ABG HCO3 19.4 mmol/L (22.0-26.0); ABG PCO2 (T) 49.9 mmHg (32.0-45.0); ABG PH (T) 7.208 (7.350-7.450); ABG PO2 (T) 60.4 mmHg (83-108); ALLEN'S TEST Positive; FCOHb 1.2 % (0.5-1.5); FMetHb 0.2 % (0.3-1.12); FO2Hb 83.8 % (94-100); MINUTE VOLUME 6 L/min; PEEP 5 cm H2O; RESPIRATORY RATE 16 b/min; RESPIRATORY RATE (OBSERVED) 16 b/min; TIDAL VOLUME 400 mL; TOTAL HEMOGLOBIN 14.2 G/dl (12.0-16.0)
[2018-02-25 13:36] LABS: LACTIC SEPSIS 9.8 MMOL/L (0.4-2.0)
[2018-02-25] MEDS ORDERED: vancomycin inj 1,000 MG in normal saline 250ml IV soln 250 ML IV STA (13:43)
[2018-02-25] MEDS ORDERED: CefTRIAXone 2gm/D5W 50ml 50 ML IV ONE ×2 (13:45→15:20)
[2018-02-25] MEDS ORDERED: normal saline 1000ML IV soln IV ONE (13:45)
[2018-02-25] MEDS ORDERED: vancomycin/NS 1 GM ADD-VANTAGE 250 ML X 1 DOSE IV ONE (13:50)
[2018-02-25] MEDS ORDERED: sod chloride 0.9% 10ml flush syringe IV ONE (14:00)
[2018-02-25] MEDS ORDERED: etomidate 2mg/ml inj. ONE ×2 (14:00)
[2018-02-25] MEDS ORDERED: rocuronium 10mg/ml inj IV ONE (14:00)
[2018-02-25] MEDS ORDERED: acetaminophen 325mg tablet PO PRN ×2 (14:45)
[2018-02-25] MEDS ORDERED: ondansetron/PF 4mg/2ml inj IV PRN (14:45)
[2018-02-25] MEDS ORDERED: magnesium hydroxide 30ml (MOM) UD suspension PO PRN (14:45)
[2018-02-25] MEDS: K, MAG and/or Phos replacement - Verify level? MC SCH (14:45)
[2018-02-25] MEDS ORDERED: potassium Cl 20 mEq SR tablet PO PRN ×2 (14:45)
[2018-02-25] MEDS ORDERED: ipratropium/albuterol 3ml nebule NEB PRN (14:45)
[2018-02-25 15:27] LABS: D-DIMER 4.14 MG/L FEU (0-0.50)
[2018-02-25 15:42] LABS: AMYLASE 42 U/L (25-115); LIPASE 229 U/L (73-393)
[2018-02-25] MEDS: enoxaparin 40mg/0.4ml syringe SUBCUT SCH (15:53)
[2018-02-25] MEDS: pantoprazole 40 MG vial IV SCH (15:54)
[2018-02-25 16:20] LABS: URINE AMPHETAMINE SCREEN NEGATIVE (Neg); URINE BARBITUATE SCREEN NEGATIVE (Neg); URINE BENZODIAZEPINES SCREEN NEGATIVE (Neg); URINE CANNABINOID SCREEN NEGATIVE (Neg); URINE COCAINE SCREEN NEGATIVE (Neg); URINE METHADONE SCREEN NEGATIVE (Neg); URINE OPIATE SCREEN NEGATIVE (Neg); URINE PHENCYCLIDINE SCREEN NEGATIVE (Neg)
[2018-02-25 16:24] LABS: CLARITY,URINE CLEAR (Clear); COLOR,URINE STRAW (Yellow); GLUCOSE, URINE 250 mg/dl (Neg); KETONES,URINE NEGATIVE (Neg); LEUKOCYTE ESTERASE ,URINE NEGATIVE (Neg); NITRITES, URINE NEGATIVE (Neg); OCCULT BLOOD,URINE TRACE-LYSED (Neg); PROTEIN,URINE 100 mg/dl (Neg); UROBILINOGEN,URINE 0.2 E.U/dL (0.2-1.0)
[2018-02-25 16:32] LABS: UA COLLECTION TYPE FOLEY CATH
[2018-02-25] MEDS: sodium chloride 0.45% 1,000 ML IV SCH (16:41)
[2018-02-25] MEDS: levoFLOXACIN-Levaquin 750MG/D5 150 ML IV SCH (16:41)
[2018-02-25 16:55] LABS: RBC,URINE 0-2 /HPF (0-2)
[2018-02-25 16:56] LABS: BACTERIA,URINE FEW /HPF (Neg); MUCUS STRANDS NONE SEEN /LPF (Neg); SQUAMOUS EPITHELIAL CELL,UR FEW /LPF (FEW)
[2018-02-25] MEDS ORDERED: TICA90TA PO (17:38)
[2018-02-25] MEDS ORDERED: ASPI81TA30 PO (17:38)
[2018-02-25] MEDS ORDERED: ATOR40TA71 PO (17:38)
[2018-02-25] MEDS: propofol 1000mg/100ml bottle 100 ML IV PRN ×2 (18:50→23:55)
[2018-02-26] VITALS (24 sets, daily range): BP systolic 84–128; BP diastolic 47–81
[2018-02-26 04:06] LABS: ABG BASE EXCESS -2.8 mmol/L (-2.0-3.0); ABG HCO3 20.8 mmol/L (22.0-26.0); ABG OXYGEN SATURATION 97.3 % (95-98); ABG PCO2 (T) 32.3 mmHg (32.0-45.0); ABG PH (T) 7.426 (7.350-7.450); ABG PO2 (T) 94.9 mmHg (83-108); FCOHb 0.3 % (0.5-1.5); FMetHb 0.2 % (0.3-1.12); FO2Hb 96.8 % (94-100); MINUTE VOLUME 8 L/min; PATIENT TEMPERATURE 36.8; PEEP 5 cm H2O; RESPIRATORY RATE 16 b/min; RESPIRATORY RATE (OBSERVED) 16 b/min; TIDAL VOLUME 450 mL; TOTAL HEMOGLOBIN 12.4 G/dl (12.0-16.0)
[2018-02-26] MEDS: propofol 1000mg/100ml bottle 100 ML IV PRN ×6 (04:20→21:29)
[2018-02-26 05:28] LABS: BASOPHILS % (AUTO) 0.2 % (0-1); EOSINOPHILS # (AUTO) 0.1 X10'3 (0-0.9); EOSINOPHILS % (AUTO) 0.6 % (0-6); HEMATOCRIT 35.9 % (35.0-45.0); HEMOGLOBIN 11.7 g/dl (12.0-16.0); LYMPHOCYTES # (AUTO) 1.5 X10'3 (1.1-4.8); LYMPHOCYTES % (AUTO) 9.2 % (21-51); MEAN CORPUSCULAR HEMOGLOBIN 29.4 PG (27.0-31.0); MEAN CORPUSCULAR HGB CONC 32.6 % (33.0-36.5); MEAN CORPUSCULAR VOLUME 90.4 FL (78-98); MEAN PLATELET VOLUME 9.4 FL (7.4-10.4); MONOCYTES % (AUTO) 6.6 % (2-12); NEUTROPHILS # (AUTO) 13.2 X10'3 (1.8-7.7); NEUTROPHILS % (AUTO) 83.4 % (42-75); PLATELET COUNT 226 X10'3 (140-440); RED BLOOD COUNT 3.98 X10'6 (4.20-5.60); RED CELL DISTRIBUTION WIDTH 16.8 % (11.5-14.5); WHITE BLOOD COUNT 15.9 X10'3 (4.5-11.0)
[2018-02-26 05:43] LABS: PARTIAL THROMBOPLASTIN TIME 25 SECONDS (22-32); PROTHROMBIN TIME 10.7 SECONDS (9.0-12.0)
[2018-02-26 05:57] LABS: ALANINE AMINOTRANSFERASE 26 U/L (12-78); ALBUMIN 2.5 G/DL (3.4-5.0); ALBUMIN/GLOBULIN RATIO 0.8 (1.1-1.5); ALKALINE PHOSPHATASE 65 IU/L (46-116); ANION GAP 10 (8-16); ASPARTATE AMINO TRANSFERASE 30 U/L (10-37); BILIRUBIN,TOTAL 0.4 MG/DL (0.1-1.0); BLOOD UREA NITROGEN 19 MG/DL (7-18); BUN/CREATININE RATIO 12.2 (6.6-38.0); CALCIUM 7.6 MG/DL (8.5-10.1); CHLORIDE 110 MMOL/L (99-107); CREATININE 1.56 MG/DL (0.40-0.90); GLUCOSE 102 MG/DL (70-104); MAGNESIUM 1.6 MG/DL (1.5-2.4); PHOSPHORUS 2.7 MG/DL (2.3-4.5); POTASSIUM 3.4 MMOL/L (3.5-5.1); SODIUM 142 MMOL/L (135-145); TOTAL CARBON DIOXIDE 22.4 MMOL/L (24-32); TOTAL PROTEIN 5.5 G/DL (6.4-8.2); eGFR 33 ML/MIN
[2018-02-26] MEDS: K, MAG and/or Phos replacement - Verify level? MC SCH (08:00)
[2018-02-26] MEDS: levoFLOXACIN-Levaquin 750MG/D5 150 ML IV SCH (08:17)
[2018-02-26] MEDS: pantoprazole 40 MG vial IV SCH (08:17)
[2018-02-26] MEDS: enoxaparin 40mg/0.4ml syringe SUBCUT SCH (08:26)
[2018-02-26] MEDS: FENTANYL-0.9 % NACL/PF 100 ML IV PRN (11:37)
[2018-02-26] MEDS: sodium chloride 0.45% 1,000 ML IV SCH (13:43)
[2018-02-27] VITALS (24 sets, daily range): BP systolic 13–140; BP diastolic 59–81
[2018-02-27] MEDS: propofol 1000mg/100ml bottle 100 ML IV PRN ×7 (00:21→23:10)
[2018-02-27] MEDS: sodium chloride 0.45% 1,000 ML IV SCH ×3 (03:31→20:05)
[2018-02-27 03:51] LABS: ABG BASE EXCESS -4.7 mmol/L (-2.0-3.0); ABG HCO3 19.4 mmol/L (22.0-26.0); ABG OXYGEN SATURATION 97.3 % (95-98); ABG PCO2 (T) 33.2 mmHg (32.0-45.0); ABG PH (T) 7.386 (7.350-7.450); ABG PO2 (T) 97.5 mmHg (83-108); ALLEN'S TEST Positive; FCOHb 0.3 % (0.5-1.5); FMetHb 0.2 % (0.3-1.12); FO2Hb 96.8 % (94-100); MINUTE VOLUME 8 L/min; PATIENT TEMPERATURE 37.3; PEEP 5 cm H2O; RESPIRATORY RATE 16 b/min; RESPIRATORY RATE (OBSERVED) 16 b/min; TIDAL VOLUME 450 mL; TOTAL HEMOGLOBIN 12.2 G/dl (12.0-16.0)
[2018-02-27] MEDS ORDERED: dextrose 50%-water 50ml dispensing syringe IV ONE (03:56)
[2018-02-27] MEDS ORDERED: glucagon, human recombinant 1mg kit SUBCUT PRN (04:00)
[2018-02-27] MEDS ORDERED: dextrose 50%-water 50ml dispensing syringe IV PRN ×2 (04:00)
[2018-02-27] MEDS ORDERED: dextrose ORAL solution 15 GM/59 ML bottle PO PRN ×2 (04:00)
[2018-02-27 05:52] LABS: BASOPHILS % (AUTO) 0.1 % (0-1); EOSINOPHILS # (AUTO) 0.5 X10'3 (0-0.9); EOSINOPHILS % (AUTO) 2.8 % (0-6); HEMATOCRIT 35.5 % (35.0-45.0); HEMOGLOBIN 11.6 g/dl (12.0-16.0); LYMPHOCYTES # (AUTO) 1.2 X10'3 (1.1-4.8); LYMPHOCYTES % (AUTO) 7.7 % (21-51); MEAN CORPUSCULAR HEMOGLOBIN 29.4 PG (27.0-31.0); MEAN CORPUSCULAR HGB CONC 32.6 % (33.0-36.5); MEAN CORPUSCULAR VOLUME 90.3 FL (78-98); MEAN PLATELET VOLUME 9.3 FL (7.4-10.4); MONOCYTES # (AUTO) 1.3 X10'3 (0-0.9); MONOCYTES % (AUTO) 7.8 % (2-12); NEUTROPHILS # (AUTO) 13.3 X10'3 (1.8-7.7); NEUTROPHILS % (AUTO) 81.6 % (42-75); PLATELET COUNT 207 X10'3 (140-440); RED BLOOD COUNT 3.93 X10'6 (4.20-5.60); RED CELL DISTRIBUTION WIDTH 17.8 % (11.5-14.5); WHITE BLOOD COUNT 16.3 X10'3 (4.5-11.0)
[2018-02-27 05:53] LABS: PARTIAL THROMBOPLASTIN TIME 25 SECONDS (22-32); PROTHROMBIN TIME 10.2 SECONDS (9.0-12.0)
[2018-02-27 05:56] LABS: ALANINE AMINOTRANSFERASE 22 U/L (12-78); ALBUMIN 2.5 G/DL (3.4-5.0); ALBUMIN/GLOBULIN RATIO 0.8 (1.1-1.5); ALKALINE PHOSPHATASE 71 IU/L (46-116); ANION GAP 14 (8-16); ASPARTATE AMINO TRANSFERASE 27 U/L (10-37); BILIRUBIN,TOTAL 0.5 MG/DL (0.1-1.0); BLOOD UREA NITROGEN 15 MG/DL (7-18); BUN/CREATININE RATIO 9.7 (6.6-38.0); CALCIUM 8.1 MG/DL (8.5-10.1); CHLORIDE 106 MMOL/L (99-107); CREATININE 1.55 MG/DL (0.40-0.90); GLUCOSE 128 MG/DL (70-104); MAGNESIUM 1.8 MG/DL (1.5-2.4); PHOSPHORUS 2.6 MG/DL (2.3-4.5); POTASSIUM 3.3 MMOL/L (3.5-5.1); SODIUM 141 MMOL/L (135-145); TOTAL CARBON DIOXIDE 21.5 MMOL/L (24-32); TOTAL PROTEIN 5.8 G/DL (6.4-8.2); eGFR 34 ML/MIN
[2018-02-27 06:25] LABS: PREALBUMIN 18.8 MG/DL (19-36)
[2018-02-27] MEDS: pantoprazole 40 MG vial IV SCH (07:35)
[2018-02-27] MEDS: levoFLOXACIN-Levaquin 750MG/D5 150 ML IV SCH (07:36)
[2018-02-27] MEDS: enoxaparin 40mg/0.4ml syringe SUBCUT SCH (07:37)
[2018-02-27] MEDS: K, MAG and/or Phos replacement - Verify level? MC SCH (07:37)
[2018-02-27] MEDS: CefTRIAXone 2gm/D5W 50ml 50 ML IV SCH (12:38)
[2018-02-27] MEDS: dextrose 5%-1/2 normal saline 1,000 ML IV SCH (12:38)
[2018-02-27] MEDS: FENTANYL-0.9 % NACL/PF 100 ML IV PRN (15:07)
[2018-02-27] MEDS: insulin glargine (Lantus) pen - multi-dose SQ SCH (19:28)
[2018-02-28] VITALS (24 sets, daily range): BP systolic 101–139; BP diastolic 60–93
[2018-02-28] MEDS: dextrose 5%-1/2 normal saline 1,000 ML IV SCH (00:32)
[2018-02-28] MEDS: propofol 1000mg/100ml bottle 100 ML IV PRN ×2 (03:16→07:41)
[2018-02-28 05:05] LABS: ABG BASE EXCESS -4.1 mmol/L (-2.0-3.0); ABG HCO3 19.9 mmol/L (22.0-26.0); ABG OXYGEN SATURATION 96.6 % (95-98); ABG PCO2 (T) 33.8 mmHg (32.0-45.0); ABG PO2 (T) 90.5 mmHg (83-108); ALLEN'S TEST Positive; FCOHb 0.3 % (0.5-1.5); FMetHb 0.1 % (0.3-1.12); FO2Hb 96.2 % (94-100); PATIENT TEMPERATURE 37.4; PEEP 5 cm H2O; RESPIRATORY RATE 16 b/min; TIDAL VOLUME 450 mL; TOTAL HEMOGLOBIN 12.2 G/dl (12.0-16.0)
[2018-02-28 05:42] LABS: PARTIAL THROMBOPLASTIN TIME 27 SECONDS (22-32)
[2018-02-28 05:47] LABS: ALANINE AMINOTRANSFERASE 20 U/L (12-78); ALBUMIN 2.2 G/DL (3.4-5.0); ALBUMIN/GLOBULIN RATIO 0.6 (1.1-1.5); ALKALINE PHOSPHATASE 69 IU/L (46-116); ANION GAP 9 (8-16); ASPARTATE AMINO TRANSFERASE 23 U/L (10-37); BILIRUBIN,TOTAL 0.3 MG/DL (0.1-1.0); BLOOD UREA NITROGEN 13 MG/DL (7-18); BUN/CREATININE RATIO 10.9 (6.6-38.0); CALCIUM 8.6 MG/DL (8.5-10.1); CHLORIDE 107 MMOL/L (99-107); CREATININE 1.19 MG/DL (0.40-0.90); GLUCOSE 168 MG/DL (70-104); MAGNESIUM 1.8 MG/DL (1.5-2.4); PHOSPHORUS 2.7 MG/DL (2.3-4.5); POTASSIUM 3.8 MMOL/L (3.5-5.1); SODIUM 137 MMOL/L (135-145); TOTAL CARBON DIOXIDE 20.7 MMOL/L (24-32); TOTAL PROTEIN 5.8 G/DL (6.4-8.2); eGFR 46 ML/MIN
[2018-02-28 05:55] LABS: BASOPHILS % (AUTO) 0.1 % (0-1); EOSINOPHILS # (AUTO) 0.4 X10'3 (0-0.9); EOSINOPHILS % (AUTO) 3.1 % (0-6); HEMATOCRIT 33.9 % (35.0-45.0); HEMOGLOBIN 11.3 g/dl (12.0-16.0); LYMPHOCYTES # (AUTO) 1.1 X10'3 (1.1-4.8); LYMPHOCYTES % (AUTO) 7.6 % (21-51); MEAN CORPUSCULAR HEMOGLOBIN 29.8 PG (27.0-31.0); MEAN CORPUSCULAR HGB CONC 33.4 % (33.0-36.5); MEAN CORPUSCULAR VOLUME 89.2 FL (78-98); MEAN PLATELET VOLUME 9.7 FL (7.4-10.4); MONOCYTES % (AUTO) 6.7 % (2-12); NEUTROPHILS # (AUTO) 11.8 X10'3 (1.8-7.7); NEUTROPHILS % (AUTO) 82.5 % (42-75); PLATELET COUNT 189 X10'3 (140-440); RED CELL DISTRIBUTION WIDTH 17.5 % (11.5-14.5); WHITE BLOOD COUNT 14.3 X10'3 (4.5-11.0)
[2018-02-28] MEDS: CefTRIAXone 2gm/D5W 50ml 50 ML IV SCH (07:41)
[2018-02-28] MEDS: pantoprazole 40 MG vial IV SCH (07:41)
[2018-02-28] MEDS: enoxaparin 40mg/0.4ml syringe SUBCUT SCH (07:41)
[2018-02-28] MEDS: K, MAG and/or Phos replacement - Verify level? MC SCH (08:03)
[2018-02-28] MEDS: FENTANYL-0.9 % NACL/PF 100 ML IV PRN (09:11)
[2018-02-28] MEDS: sodium chloride 0.45% 1,000 ML IV SCH ×3 (09:25→22:45)
[2018-02-28] MEDS ORDERED: racepinephrine 11.25mg/0.5ml nebule NEB PRN (15:20)
[2018-02-28] MEDS ORDERED: ipratropium/albuterol 3ml nebule NEB PRN (15:20)
[2018-02-28] MEDS: predniSONE 20 mg tablet PO SCH (15:28)
[2018-02-28] MEDS ORDERED: non-formulary drug (Albuterol Sulfate (Ventolin Hfa) 2 PUFFS) INH PRN (15:40)
[2018-02-28] MEDS ORDERED: predniSONE 5mg tablet PO SCH (15:40)
[2018-02-28] MEDS ORDERED: HYDROcodone/acetaminophen 10/325mg tab PO PRN (15:40)
[2018-02-28] MEDS ORDERED: nitroGLYCERIN 0.4mg SUBLingual tab SL PRN (15:40)
[2018-02-28] MEDS: hydrALAZINE 25 MG tablet PO SCH ×2 (17:00→19:26)
[2018-02-28] MEDS: spironolactone 25 MG tablet PO SCH (17:13)
[2018-02-28] MEDS: levoTHYROXINE 100mcg tablet PO SCH (17:14)
[2018-02-28] MEDS: digoxin 125mcg (0.125mg) tablet PO SCH (17:15)
[2018-02-28] MEDS: furosemide 20MG tablet PO SCH (17:15)
[2018-02-28] MEDS: HYDROcodone/acetaminophen 10/325mg tab PO PRN (17:16)
[2018-02-28] MEDS: calcium carbonate 500mg tablet PO SCH (19:26)
[2018-02-28] MEDS: ticagrelor 90mg tablet PO SCH (19:26)
[2018-02-28] MEDS: oxybutynin 5mg tablet PO SCH (19:26)
[2018-02-28] MEDS: acyclovir 200 MG capsule PO SCH ×2 (19:26→20:00)
[2018-02-28] MEDS: insulin Lispro (HumaLOG) vial - multi-dose SQ SCH (19:40)
[2018-02-28] MEDS: insulin glargine (Lantus) pen - multi-dose SQ SCH (19:41)
[2018-02-28] MEDS: ipratropium/albuterol 3ml nebule NEB SCH (20:47)
[2018-03-01] VITALS (17 sets, daily range): BP systolic 91–156; BP diastolic 50–84
[2018-03-01] MEDS ORDERED: temazepam 15mg capsule PO PRN (00:30)
[2018-03-01] MEDS: HYDROcodone/acetaminophen 10/325mg tab PO PRN ×3 (00:36→22:48)
[2018-03-01] MEDS: dextrose 5%-1/2 normal saline 1,000 ML IV SCH ×2 (02:50→21:54)
[2018-03-01] MEDS: ipratropium/albuterol 3ml nebule NEB SCH ×4 (02:59→20:42)
[2018-03-01 05:27] LABS: BASOPHILS % (AUTO) 0 % (0-1); EOSINOPHILS # (AUTO) 0.2 X10'3 (0-0.9); EOSINOPHILS % (AUTO) 1.4 % (0-6); HEMATOCRIT 32.9 % (35.0-45.0); HEMOGLOBIN 10.8 g/dl (12.0-16.0); LYMPHOCYTES # (AUTO) 0.8 X10'3 (1.1-4.8); LYMPHOCYTES % (AUTO) 5.1 % (21-51); MEAN CORPUSCULAR HEMOGLOBIN 29.6 PG (27.0-31.0); MEAN CORPUSCULAR HGB CONC 32.8 % (33.0-36.5); MEAN CORPUSCULAR VOLUME 90.3 FL (78-98); MEAN PLATELET VOLUME 9.4 FL (7.4-10.4); NEUTROPHILS # (AUTO) 14.5 X10'3 (1.8-7.7); NEUTROPHILS % (AUTO) 87.5 % (42-75); PLATELET COUNT 200 X10'3 (140-440); RED BLOOD COUNT 3.64 X10'6 (4.20-5.60); WHITE BLOOD COUNT 16.5 X10'3 (4.5-11.0)
[2018-03-01 05:38] LABS: INR 0.9 INR; PARTIAL THROMBOPLASTIN TIME 28 SECONDS (22-32); PROTHROMBIN TIME 9.7 SECONDS (9.0-12.0)
[2018-03-01 05:57] LABS: ALANINE AMINOTRANSFERASE 28 U/L (12-78); ALBUMIN 2.5 G/DL (3.4-5.0); ALBUMIN/GLOBULIN RATIO 0.6 (1.1-1.5); ALKALINE PHOSPHATASE 71 IU/L (46-116); ANION GAP 11 (8-16); ASPARTATE AMINO TRANSFERASE 28 U/L (10-37); BILIRUBIN,TOTAL 0.3 MG/DL (0.1-1.0); BLOOD UREA NITROGEN 15 MG/DL (7-18); BUN/CREATININE RATIO 11.6 (6.6-38.0); CALCIUM 9.1 MG/DL (8.5-10.1); CHLORIDE 106 MMOL/L (99-107); CREATININE 1.29 MG/DL (0.40-0.90); GLUCOSE 133 MG/DL (70-104); MAGNESIUM 1.9 MG/DL (1.5-2.4); POTASSIUM 3.8 MMOL/L (3.5-5.1); PREALBUMIN 15.1 MG/DL (19-36); SODIUM 141 MMOL/L (135-145); TOTAL CARBON DIOXIDE 24.5 MMOL/L (24-32); TOTAL PROTEIN 6.4 G/DL (6.4-8.2); eGFR 42 ML/MIN
[2018-03-01] MEDS: K, MAG and/or Phos replacement - Verify level? MC SCH (07:15)
[2018-03-01] MEDS: hydrALAZINE 25 MG tablet PO SCH (07:15)
[2018-03-01] MEDS ORDERED: levoFLOXACIN-Levaquin 750MG/D5 150 ML IV SCH (08:00)
[2018-03-01] MEDS: predniSONE 20 mg tablet PO SCH (08:30)
[2018-03-01] MEDS: levoTHYROXINE 100mcg tablet PO SCH (08:31)
[2018-03-01] MEDS: atorvastatin 20mg tablet PO SCH (08:31)
[2018-03-01] MEDS: oxybutynin 5mg tablet PO SCH ×2 (08:31→20:13)
[2018-03-01] MEDS: aspirin 81mg tab.chew PO SCH (08:31)
[2018-03-01] MEDS: spironolactone 25 MG tablet PO SCH (08:31)
[2018-03-01] MEDS: ticagrelor 90mg tablet PO SCH ×2 (08:31→20:14)
[2018-03-01] MEDS: calcium carbonate 500mg tablet PO SCH ×2 (08:31→20:14)
[2018-03-01] MEDS: pantoprazole 40 MG vial IV SCH (08:32)
[2018-03-01] MEDS: digoxin 125mcg (0.125mg) tablet PO SCH (08:32)
[2018-03-01] MEDS: furosemide 20MG tablet PO SCH (08:32)
[2018-03-01] MEDS: vitamin D (cholecalciferol) 1,000 unit tablet PO SCH (08:32)
[2018-03-01] MEDS: enoxaparin 40mg/0.4ml syringe SUBCUT SCH (08:33)
[2018-03-01] MEDS: acyclovir 200 MG capsule PO SCH ×2 (08:33→20:14)
[2018-03-01] MEDS: CefTRIAXone 2gm/D5W 50ml 50 ML IV SCH (10:27)
[2018-03-01] MEDS: sodium chloride 0.45% 1,000 ML IV SCH (12:05)
[2018-03-01] MEDS: hyDRALAzine 10mg tablet PO SCH ×2 (17:02→20:14)
[2018-03-01] MEDS: insulin Lispro (HumaLOG) vial - multi-dose SQ SCH (18:36)
[2018-03-01] MEDS: famotidine 20mg tablet PO SCH (20:14)
[2018-03-01] MEDS: insulin glargine (Lantus) pen - multi-dose SQ SCH (20:58)
[2018-03-02] MEDS: sodium chloride 0.45% 1,000 ML IV SCH (01:19)
[2018-03-02] MEDS: ipratropium/albuterol 3ml nebule NEB SCH ×4 (02:29→19:57)
[2018-03-02 03:00] VITALS: BP 124/68
[2018-03-02 05:54] LABS: BASOPHILS % (AUTO) 0.1 % (0-1); EOSINOPHILS # (AUTO) 0.3 X10'3 (0-0.9); EOSINOPHILS % (AUTO) 2.6 % (0-6); HEMATOCRIT 32.4 % (35.0-45.0); HEMOGLOBIN 10.7 g/dl (12.0-16.0); LYMPHOCYTES # (AUTO) 0.6 X10'3 (1.1-4.8); LYMPHOCYTES % (AUTO) 5.4 % (21-51); MEAN CORPUSCULAR HEMOGLOBIN 29.4 PG (27.0-31.0); MEAN CORPUSCULAR HGB CONC 32.9 % (33.0-36.5); MEAN CORPUSCULAR VOLUME 89.3 FL (78-98); MEAN PLATELET VOLUME 8.8 FL (7.4-10.4); MONOCYTES # (AUTO) 0.7 X10'3 (0-0.9); MONOCYTES % (AUTO) 6.4 % (2-12); NEUTROPHILS # (AUTO) 9.5 X10'3 (1.8-7.7); NEUTROPHILS % (AUTO) 85.5 % (42-75); PLATELET COUNT 218 X10'3 (140-440); RED BLOOD COUNT 3.63 X10'6 (4.20-5.60); RED CELL DISTRIBUTION WIDTH 17.8 % (11.5-14.5); WHITE BLOOD COUNT 11.1 X10'3 (4.5-11.0)
[2018-03-02 06:34] LABS: ALANINE AMINOTRANSFERASE 33 U/L (12-78); ALBUMIN 2.3 G/DL (3.4-5.0); ALBUMIN/GLOBULIN RATIO 0.6 (1.1-1.5); ALKALINE PHOSPHATASE 64 IU/L (46-116); ANION GAP 9 (8-16); ASPARTATE AMINO TRANSFERASE 23 U/L (10-37); BILIRUBIN,TOTAL 0.3 MG/DL (0.1-1.0); BLOOD UREA NITROGEN 23 MG/DL (7-18); BUN/CREATININE RATIO 17.8 (6.6-38.0); CALCIUM 8.4 MG/DL (8.5-10.1); CHLORIDE 106 MMOL/L (99-107); CREATININE 1.29 MG/DL (0.40-0.90); GLUCOSE 105 MG/DL (70-104); MAGNESIUM 1.9 MG/DL (1.5-2.4); PHOSPHORUS 2.9 MG/DL (2.3-4.5); POTASSIUM 3.8 MMOL/L (3.5-5.1); SODIUM 140 MMOL/L (135-145); TOTAL CARBON DIOXIDE 25.3 MMOL/L (24-32); TOTAL PROTEIN 6.1 G/DL (6.4-8.2); eGFR 42 ML/MIN
[2018-03-02] MEDS: vitamin D (cholecalciferol) 1,000 unit tablet PO SCH (07:01)
[2018-03-02] MEDS: calcium carbonate 500mg tablet PO SCH ×2 (07:01→20:52)
[2018-03-02] MEDS: furosemide 20MG tablet PO SCH (07:01)
[2018-03-02] MEDS: digoxin 125mcg (0.125mg) tablet PO SCH (07:01)
[2018-03-02] MEDS: famotidine 20mg tablet PO SCH ×2 (07:02→20:52)
[2018-03-02] MEDS: K, MAG and/or Phos replacement - Verify level? MC SCH (08:00)
[2018-03-02] MEDS ORDERED: methylnaltrexone br 12mg/0.6ml inj***SubQ only SQ SCH (08:00)
[2018-03-02] MEDS: atorvastatin 20mg tablet PO SCH (08:21)
[2018-03-02] MEDS: levoTHYROXINE 100mcg tablet PO SCH (08:21)
[2018-03-02] MEDS: acyclovir 200 MG capsule PO SCH ×2 (08:21→20:52)
[2018-03-02] MEDS: spironolactone 25 MG tablet PO SCH (08:22)
[2018-03-02] MEDS: predniSONE 20 mg tablet PO SCH (08:22)
[2018-03-02] MEDS: hyDRALAzine 10mg tablet PO SCH ×4 (08:23→20:52)
[2018-03-02] MEDS: oxybutynin 5mg tablet PO SCH ×2 (08:30→20:52)
[2018-03-02] MEDS: HYDROcodone/acetaminophen 10/325mg tab PO PRN ×2 (09:02→16:18)
[2018-03-02] MEDS: aspirin 81mg tab.chew PO SCH (11:16)
[2018-03-02] MEDS: levoFLOXACIN 250mg tablet PO SCH (11:16)
[2018-03-02] MEDS: ticagrelor 90mg tablet PO SCH ×2 (11:17→20:52)
[2018-03-02 15:00] VITALS: BP 74/68
[2018-03-02] MEDS: dextrose 5%-1/2 normal saline 1,000 ML IV SCH (18:35)
[2018-03-02] MEDS: insulin Lispro (HumaLOG) vial - multi-dose SQ SCH (18:42)
[2018-03-02 19:00] VITALS: BP 122/70
[2018-03-02] MEDS: insulin glargine (Lantus) pen - multi-dose SQ SCH (20:57)
[2018-03-02 23:00] VITALS: BP 133/82
[2018-03-03] MEDS: ipratropium/albuterol 3ml nebule NEB SCH ×2 (02:38→09:00)
[2018-03-03 03:00] VITALS: BP 142/85
[2018-03-03 06:00] VITALS: BP 104/52
[2018-03-03 06:01] LABS: BASOPHILS % (AUTO) 0.2 % (0-1); EOSINOPHILS # (AUTO) 0.3 X10'3 (0-0.9); EOSINOPHILS % (AUTO) 2.9 % (0-6); HEMATOCRIT 32.1 % (35.0-45.0); HEMOGLOBIN 10.6 g/dl (12.0-16.0); LYMPHOCYTES # (AUTO) 1.1 X10'3 (1.1-4.8); LYMPHOCYTES % (AUTO) 11.2 % (21-51); MEAN CORPUSCULAR HEMOGLOBIN 29.4 PG (27.0-31.0); MEAN CORPUSCULAR HGB CONC 33.1 % (33.0-36.5); MEAN CORPUSCULAR VOLUME 88.7 FL (78-98); MEAN PLATELET VOLUME 8.6 FL (7.4-10.4); MONOCYTES # (AUTO) 1.1 X10'3 (0-0.9); MONOCYTES % (AUTO) 11.5 % (2-12); NEUTROPHILS # (AUTO) 7.3 X10'3 (1.8-7.7); NEUTROPHILS % (AUTO) 74.2 % (42-75); PLATELET COUNT 214 X10'3 (140-440); RED BLOOD COUNT 3.62 X10'6 (4.20-5.60); RED CELL DISTRIBUTION WIDTH 17.4 % (11.5-14.5); WHITE BLOOD COUNT 9.9 X10'3 (4.5-11.0)
[2018-03-03 06:29] LABS: ALANINE AMINOTRANSFERASE 31 U/L (12-78); ALBUMIN 2.5 G/DL (3.4-5.0); ALBUMIN/GLOBULIN RATIO 0.7 (1.1-1.5); ALKALINE PHOSPHATASE 71 IU/L (46-116); ANION GAP 10 (8-16); ASPARTATE AMINO TRANSFERASE 26 U/L (10-37); BILIRUBIN,TOTAL 0.5 MG/DL (0.1-1.0); BLOOD UREA NITROGEN 22 MG/DL (7-18); BUN/CREATININE RATIO 19.8 (6.6-38.0); CALCIUM 8.6 MG/DL (8.5-10.1); CHLORIDE 105 MMOL/L (99-107); CREATININE 1.11 MG/DL (0.40-0.90); GLUCOSE 94 MG/DL (70-104); MAGNESIUM 1.8 MG/DL (1.5-2.4); PHOSPHORUS 2.5 MG/DL (2.3-4.5); POTASSIUM 3.5 MMOL/L (3.5-5.1); SODIUM 142 MMOL/L (135-145); TOTAL CARBON DIOXIDE 26.7 MMOL/L (24-32); TOTAL PROTEIN 6.2 G/DL (6.4-8.2); eGFR 49 ML/MIN
[2018-03-03] MEDS: levoTHYROXINE 100mcg tablet PO SCH (07:57)
[2018-03-03] MEDS: aspirin 81mg tab.chew PO SCH (07:57)
[2018-03-03] MEDS: hyDRALAzine 10mg tablet PO SCH ×2 (07:57→12:24)
[2018-03-03] MEDS: atorvastatin 20mg tablet PO SCH (07:57)
[2018-03-03] MEDS: predniSONE 20 mg tablet PO SCH (07:57)
[2018-03-03] MEDS: ticagrelor 90mg tablet PO SCH (07:57)
[2018-03-03] MEDS: spironolactone 25 MG tablet PO SCH (07:58)
[2018-03-03] MEDS: acyclovir 200 MG capsule PO SCH (07:58)
[2018-03-03] MEDS: digoxin 125mcg (0.125mg) tablet PO SCH (07:58)
[2018-03-03] MEDS: calcium carbonate 500mg tablet PO SCH (07:58)
[2018-03-03] MEDS: oxybutynin 5mg tablet PO SCH (07:58)
[2018-03-03] MEDS: vitamin D (cholecalciferol) 1,000 unit tablet PO SCH (07:58)
[2018-03-03] MEDS: furosemide 20MG tablet PO SCH (07:58)
[2018-03-03] MEDS: famotidine 20mg tablet PO SCH (07:58)
[2018-03-03] MEDS: K, MAG and/or Phos replacement - Verify level? MC SCH (08:00)
[2018-03-03] MEDS: HYDROcodone/acetaminophen 10/325mg tab PO PRN (10:46)
[2018-03-03] MEDS: levoFLOXACIN 250mg tablet PO SCH (10:47)
[2018-03-03 11:00] VITALS: BP 146/83
[2018-03-03] MEDS ORDERED: LEVO250T58 PO (13:12)
== END 2018-03-03 13:45 | disposition home or self-care (01) | DRG 871 ==
LOC: ER 12:38 → ED HOLD 14:45 → ICU 2S 16:36 → PCU 3S 03-01 14:55
PROVIDERS: ADMIT Internal Medicine Critical Care Medicine; ATTEND Physician Assistant
PROC: 5A1945Z Respiratory Ventilation, 24-96 Consecutive Hours (ICD-10-PCS; principal; 2018-02-25)
PROC: 0BH17EZ Insertion of Endotracheal Airway into Trachea, Via Natural or Artificial Opening (ICD-10-PCS; 2018-02-25)
DX: A41.9 Sepsis, unspecified organism (principal); G93.40 Encephalopathy, unspecified; J96.00 Acute respiratory failure, unspecified whether with hypoxia or hypercapnia; J18.9 Pneumonia, unspecified organism; N17.9 Acute kidney failure, unspecified; I13.0 Hypertensive heart and chronic kidney disease with heart failure and stage 1 through stage 4 chronic kidney disease, or unspecified chronic kidney disease; M10.9 Gout, unspecified; E11.22 Type 2 diabetes mellitus with diabetic chronic kidney disease; F41.9 Anxiety disorder, unspecified; F17.200 Nicotine dependence, unspecified, uncomplicated; N18.3 Chronic kidney disease, stage 3 (moderate); J44.9 Chronic obstructive pulmonary disease, unspecified; E03.9 Hypothyroidism, unspecified; F15.90 Other stimulant use, unspecified, uncomplicated; I50.9 Heart failure, unspecified; Z95.5 Presence of coronary angioplasty implant and graft; Z91.81 History of falling; Z88.6 Allergy status to analgesic agent; Z88.2 Allergy status to sulfonamides; Z88.8 Allergy status to other drugs, medicaments and biological substances; Z79.899 Other long term (current) drug therapy
CPT/HCPCS: 36415; 36600; 70450; 71045; 71250; 80053; 80162; 80305; 80320; 81001; 82140; 82150; 82550; 82803; 82948; 83036; 83605; 83690; 83735; 84100; 84134; 84145; 84439; 84443; 84484; 85018; 85025; 85379; 85610; 85730; 87040; 87070; 87088; 93005; 94002; 94003; 94640; 94760; 96365; 96368; 97116; 97161; 99291; A6213; A6257; A6449; C1758; C9113; J0696; J1650; J1815; J1956; J2704; J3370; J3490; J7030; J7512

== ENCOUNTER 2018-03-16 15:06 | Emergency (ER) | payer BC ==
[~2018-03-16] VITALS: Ht 157.5 cm; Wt 68.0 kg
[~2018-03-16 15:06] MED LIST changes: +ASPI81TA30 PO; +ATOR40TA71 PO; +LEVO250T58 PO; +TICA90TA PO
[2018-03-16 15:43] LABS: CLARITY,URINE Clear (Clear); COLOR,URINE Yellow (Yellow); GLUCOSE, URINE Negative (Neg); KETONES,URINE Negative (Neg); LEUKOCYTE ESTERASE ,URINE Negative (Neg); NITRITES, URINE Negative (Neg); OCCULT BLOOD,URINE Negative (Neg); PROTEIN,URINE 30 mg/dl (Neg); UROBILINOGEN,URINE 0.2 E.U/dL (0.2-1.0)
[2018-03-16 15:45] LABS: URINE HCG NEGATIVE (NEG)
[2018-03-16 15:46] LABS: UA COLLECTION TYPE CLN CATCH MIDSTREAM
[2018-03-16 15:50] LABS: BACTERIA,URINE 1+ /HPF (Neg); HYALINE CASTS 0-3 /LPF (NEGATIVE); MUCUS STRANDS NONE SEEN /LPF (Neg); RBC,URINE NONE SEEN /HPF (0-2); RENAL CELLS, URINE FEW /HPF; SQUAMOUS EPITHELIAL CELL,UR MANY /LPF (FEW); WBC,URINE 0-4 /HPF (0-4)
[2018-03-16 16:00] LABS: BASOPHILS % (AUTO) 0.2 % (0-1); EOSINOPHILS # (AUTO) 0.2 X10'3 (0-0.9); EOSINOPHILS % (AUTO) 0.9 % (0-6); HEMATOCRIT 40.3 % (35.0-45.0); HEMOGLOBIN 13.1 g/dl (12.0-16.0); LYMPHOCYTES # (AUTO) 1.2 X10'3 (1.1-4.8); LYMPHOCYTES % (AUTO) 6.3 % (21-51); MEAN CORPUSCULAR HEMOGLOBIN 29.1 PG (27.0-31.0); MEAN CORPUSCULAR HGB CONC 32.4 % (33.0-36.5); MEAN CORPUSCULAR VOLUME 89.9 FL (78-98); MEAN PLATELET VOLUME 9.1 FL (7.4-10.4); MONOCYTES # (AUTO) 1.4 X10'3 (0-0.9); MONOCYTES % (AUTO) 7.3 % (2-12); NEUTROPHILS # (AUTO) 16.6 X10'3 (1.8-7.7); NEUTROPHILS % (AUTO) 85.3 % (42-75); PLATELET COUNT 339 X10'3 (140-440); RED BLOOD COUNT 4.48 X10'6 (4.20-5.60); RED CELL DISTRIBUTION WIDTH 17.5 % (11.5-14.5); WHITE BLOOD COUNT 19.5 X10'3 (4.5-11.0)
[2018-03-16 16:08] LABS: PROTHROMBIN TIME 10.6 SECONDS (9.0-12.0)
[2018-03-16 16:26] LABS: ALANINE AMINOTRANSFERASE 15 U/L (12-78); ALBUMIN 3.1 G/DL (3.4-5.0); ALBUMIN/GLOBULIN RATIO 0.7 (1.1-1.5); ALKALINE PHOSPHATASE 83 IU/L (46-116); ANION GAP 10 (8-16); ASPARTATE AMINO TRANSFERASE 14 U/L (10-37); BILIRUBIN,TOTAL 1.2 MG/DL (0.1-1.0); BLOOD UREA NITROGEN 18 MG/DL (7-18); BUN/CREATININE RATIO 12.5 (6.6-38.0); CALCIUM 9.8 MG/DL (8.5-10.1); CHLORIDE 97 MMOL/L (99-107); CREATININE 1.44 MG/DL (0.40-0.90); GLUCOSE 194 MG/DL (70-104); LIPASE 184 U/L (73-393); POTASSIUM 3.5 MMOL/L (3.5-5.1); SODIUM 136 MMOL/L (135-145); TOTAL CARBON DIOXIDE 29.1 MMOL/L (24-32); TOTAL PROTEIN 7.8 G/DL (6.4-8.2); eGFR 37 ML/MIN
[2018-03-16] MEDS ORDERED: levoFLOXACIN 250mg tablet PO ONE (18:05)
[2018-03-16] MEDS ORDERED: metroNIDAZOLE 500mg tablet PO ONE (18:05)
[2018-03-16] MEDS ORDERED: LEVO750T21 PO (18:11)
[2018-03-16] MEDS ORDERED: METR500T4 PO (18:11)
[2018-03-16 18:22] VITALS: BP 123/80
== END 2018-03-16 18:24 | disposition home or self-care (01) ==
LOC: ER 15:07
DX: K57.32 Diverticulitis of large intestine without perforation or abscess without bleeding (principal); R10.30 Lower abdominal pain, unspecified; F15.90 Other stimulant use, unspecified, uncomplicated; I11.0 Hypertensive heart disease with heart failure; I50.9 Heart failure, unspecified; J44.9 Chronic obstructive pulmonary disease, unspecified; E11.9 Type 2 diabetes mellitus without complications; E03.9 Hypothyroidism, unspecified; M10.9 Gout, unspecified; Z90.89 Acquired absence of other organs; Z79.899 Other long term (current) drug therapy; Z79.82 Long term (current) use of aspirin; Z88.2 Allergy status to sulfonamides; Z88.8 Allergy status to other drugs, medicaments and biological substances
CPT/HCPCS: 36415; 71045; 74176; 80053; 81001; 81025; 83605; 83690; 85025; 85610; 87040; 99285; J3490